=== PATIENT | female | born 1965 | race Caucasian/White ===

== ENCOUNTER 2016-04-10 23:34 | Emergency (ER) | payer OTHER ==
[~2016-04-10 23:34] MED LIST: /ESOM40CA OR; ALTA5CAP OR; CIPRO PO; ROSU10TA OR; [UNRECOGNIZED DRUG - OTHER] PO
[2016-04-11] MEDS ORDERED: traMADol 50 MG TAB As Ordered ONE (00:08)
[2016-04-11] MEDS ORDERED: METHOCARBAMOL 500 MG TAB As Ordered ONE (00:09)
--- NOTE | 2016-04-11 00:26 | EDDOCDS ---
Physician Documentation [facility] Name: Noy Rivera Age: 50 yrs Sex: Female : 1965 Arrival Date: 04/10/2016 Time: 23:34 Bed Triage 3 Private MD: Mandeep Disposition: 04/11/16 00:07 Discharged to Home/Self Care. Impression: Radiculopathy, cervical region. - Condition is Stable. - Discharge Instructions: Cervical Radiculopathy, [id number]. - Prescriptions for Ultram 50 mg Oral Tablet - take 1 tablet by ORAL route every 6 hours As needed MDD: 4 tabs; 20 tablet. Diclofenac Sodium 75 mg Oral Tablet, Delayed Release (E.C.) - take 1 tablet by ORAL route 2 times per day; 30 tablet. Robaxin- 750 750 mg Oral Tablet - take 1 tablet by ORAL route every 6 hours As needed; 40 tablet. - Medication Reconciliation, Local Pharmacy Hours form. - Follow up: Mandeep; When: Call to arrange an appointment; Reason: Further diagnostic work-up, Recheck today's complaints, Continuance of care. - Problem is new. - Symptoms are unchanged. Historical: - Allergies: PENICILLINS; - Home Meds: 1. Nexium 80mg daily Oral 2. ramipril 5 mg Oral tab daily 3. Crestor 10 mg Oral tab 4. normydine 100mg - PMHx: Hypertension; Hypercholesterolemia; - PSHx: Hysterectomy; Appendectomy; bilateral knee repair; right footsurgery; eye surgery; - Social history: Smoking status: Patient states was never smoker of tobacco. No barriers to communication noted, The patient speaks fluent Gibraltarian, Speaks appropriately for age. - Family history: Not pertinent. - : The pt / caregiver states he / she is not on anticoagulants. Home medication list is obtained from the patient. - Exposure Risk Screening:: None identified. 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 3 in. (160.02 cm) (R); Pain 8/10; 23:36 Body Mass Index 44.29 (113.40 kg, 160.02 cm) gr2 MDM: 04/11 00:06 traMADol 50mg- 4 pack 1 packets PO Per package directions; Dispense with patient. Take btw per package instructions. ordered. 00:06 Methocarbamol 1 grams PO once ordered. btw Administered Medications: 00:15 Drug: traMADol 50mg- 4 pack 1 packets [tramadol 50 mg tablet (1 tabs)] {Co-Signature: ying catherine5 (Noy Parkinson RN).} Route: PO; 00:15 Drug: Methocarbamol 1 grams [methocarbamol 500 mg tablet (2 tabs)] Route: PO; cz Signatures: Geovani Duffy RN RN cz Wolfenden, Brandon, PA PA btw Noy Parkinson RN ld5 MTDEdmond
--- NOTE | 2016-04-11 00:26 | EDDOCDS ---
Nurse's Notes [facility] Name: Noy Rivera Age: 50 yrs Sex: Female : 1965 Arrival Date: 04/10/2016 Time: 23:34 Bed Triage 3 Private MD: Mandeep Diagnosis: Radiculopathy, cervical region Presentation: 04/10 23:39 Presenting complaint: Patient states: she woke up with right lateral neck pain that cz radiates to right arm no relief with over the counter medications and heat no known injury. Adult Sepsis Screening: The patient does not have new or worsening altered mentation. Patient's respiratory rate is less than 22. Systolic blood pressure is greater than 100. Patient has a qSOFA score of 0- Negative Sepsis Screen. Suicide/Homicide risk assessment- the patient denies having any suicidal and/or homicidal ideations and does not present with any other emotional, behavioral or mental health complaints. Status: Patient is not a service car driver or dependent. Transition of care: patient was not received from another setting of care. 23:39 Acuity: ELVER Level 4 cz 23:39 Method Of Arrival: Walkin/Carried/Asstd cz Triage Assessment: 23:42 General: Appears uncomfortable. Pain: Location: right arm Pain currently is 8 out of 10 cz on a pain scale. Pt Declines HIV testing. 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 Nexium 80mg daily Oral 2. ramipril 5 mg Oral tab daily 3. Crestor 10 mg Oral tab 4. normydine 100mg - PMHx: Hypertension; Hypercholesterolemia; - PSHx: Hysterectomy; Appendectomy; bilateral knee repair; right footsurgery; eye surgery; - Social history: Smoking status: Patient states was never smoker of tobacco. No barriers to communication noted, The patient speaks fluent Luxembourgish, Speaks appropriately for age. - Family history: Not pertinent. - : The pt / caregiver states he / she is not on anticoagulants. Home medication list is obtained from the patient. - Exposure Risk Screening:: None identified. Screenin/13 00:23 Screening information is obtained from the patient. Fall risk: No risks identified. cz Assistance ADL's: requires no assistance with activities of daily living. Abuse/DV Screen: The patient / caregiver reports he/she is: not in a situation that causes fear, pain or injury. Nutritional screening: No deficits noted. home support is adequate. Assessment: 00:23 General: alert female with right lateral neck pain and right arm pain. Musculoskeletal: cz Circulation, motion, and sensation intact Capillary refill < 3 seconds. Vital Signs: 04/10 23:36 BP 186 / 93; Pulse 80; Resp 18 S; Temp 97.2(O); Pulse Ox 98% on R/A; Weight 113.4 kg gr2 (R); Height 5 ft. 3 in. (160.02 cm) (R); Pain 8/10; 23:36 Body Mass Index 44.29 (113.40 kg, 160.02 cm) gr2 Vitals: 23:36 Log In Time: April 10, 2016 at 23:36. gr2 ED Course: 23:35 Patient visited by Neto Porras. gr2 23:35 Mandeep is Private Physician. gr2 23:35 Patient moved to Waiting gr2 23:37 Patient visited by Neto Porras. gr2 23:37 Patient moved to Pre RCE gr2 23:40 Triage Initiated cz 23:46 Patient moved to Triage 3 cz 04/11 00:02 Richard Wills PA is PHCP. btw 00:02 Cody Lo DO is Attending Physician. btw 00:06 Patient visited by Richard Wills PA. btw 00:07 Mandeep is Referral Physician. btw 00:23 The patient / caregiver is instructed regarding the plan of care and ED course. cz 00:23 No IV's were initiated during this patient's visit. No procedures done that require cz assistance. Administered Medications: 00:15 Drug: traMADol 50mg- 4 pack 1 packets [tramadol 50 mg tablet (1 tabs)] {Co-Signature: cz ld5 (Noy Parkinson RN).} Route: PO; 00:15 Drug: Methocarbamol 1 grams [methocarbamol 500 mg tablet (2 tabs)] Route: PO; cz Order Results: There are currently no results for this order. Outcome: 00:07 Discharge ordered by Provider. btw 00:23 Discharge Assessment: Patient awake, alert and oriented x 3. No cognitive and/or cz functional deficits noted. Patient verbalized understanding of disposition instructions. patient administered narcotics - no. The following High Risk Discharge criteria are identified: None. Discharged to home via ambulance, with family. Condition: stable. Discharge instructions given to patient. No special radiology studies were completed. Property :Personal belongings accompany Pt. 00:25 Patient left the ED. cz Signatures: Geovani Duffy RN RN Richard Shin PA PA btw Raymond, Gainslee gr2 Noy Parkinson RN ld5 MTDD
--- NOTE | 2016-04-13 01:26 | EDDOCDS ---
[facility] Name: Noy Rivera Age: 50 yrs Sex: Female : 1965 Arrival Date: 04/10/2016 Time: 23:34 Bed Triage 3 Private MD: Mandeep Disposition: 04/11/16 00:07 Discharged to Home/Self Care. Impression: Radiculopathy, cervical region. - Condition is Stable. - Discharge Instructions: Cervical Radiculopathy, [id number]. - Prescriptions for Ultram 50 mg Oral Tablet - take 1 tablet by ORAL route every 6 hours As needed MDD: 4 tabs; 20 tablet. Diclofenac Sodium 75 mg Oral Tablet, Delayed Release (E.C.) - take 1 tablet by ORAL route 2 times per day; 30 tablet. Robaxin- 750 750 mg Oral Tablet - take 1 tablet by ORAL route every 6 hours As needed; 40 tablet. - Medication Reconciliation, Local Pharmacy Hours form. - Follow up: Mandeep; When: Call to arrange an appointment; Reason: Further diagnostic work-up, Recheck today's complaints, Continuance of care. - Problem is new. - Symptoms are unchanged. Historical: - Allergies: PENICILLINS; - Home Meds: 1. Nexium 80mg daily Oral 2. ramipril 5 mg Oral tab daily 3. Crestor 10 mg Oral tab 4. normydine 100mg - PMHx: Hypertension; Hypercholesterolemia; - PSHx: Hysterectomy; Appendectomy; bilateral knee repair; right footsurgery; eye surgery; - Social history: Smoking status: Patient states was never smoker of tobacco. No barriers to communication noted, The patient speaks fluent Indonesian, Speaks appropriately for age. - Family history: Not pertinent. - : The pt / caregiver states he / she is not on anticoagulants. Home medication list is obtained from the patient. - Exposure Risk Screening:: None identified. 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 3 in. (160.02 cm) (R); Pain 8/10; 23:36 Body Mass Index 44.29 (113.40 kg, 160.02 cm) gr2 MDM: 04/11 00:06 traMADol 50mg- 4 pack 1 packets PO Per package directions; Dispense with patient. Take btw per package instructions. ordered. 00:06 Methocarbamol 1 grams PO once ordered. btw 01:32 Financial registration complete. hs2 01:33 [facility] Payment Agreement was scanned into [employer] and attached to record. hs2 09:44 T-Sheet-- Draft Copy was scanned into [employer] and attached to record. gb Administered Medications: 00:15 Drug: traMADol 50mg- 4 pack 1 packets [tramadol 50 mg tablet (1 tabs)] {Co-Signature: ying ld5 (Noy Parkinson RN).} Route: PO; 00:15 Drug: Methocarbamol 1 grams [methocarbamol 500 mg tablet (2 tabs)] Route: PO; cz Signatures: Geovani Duffy, RN RN cz Meseret Catalan, Reg Reg gb Richard Wills PA PA btw Norma Ratliff, Reg Reg hs2 Noy Parkinson RN ld5 The chart was reviewed and I authenticate all verbal orders and agree with the evaluation and treatment provided.Attachments: 01:33 [facility] Payment Agreement hs2 09:44 T-Sheet-- Draft Copy gb Chart Complete MTDD
--- NOTE | 2016-04-13 01:26 | EDDOCDS ---
Nurse's Notes [facility] Name: Noy Rivera Age: 50 yrs Sex: Female : 1965 Arrival Date: 04/10/2016 Time: 23:34 Bed Triage 3 Private MD: Mandeep Diagnosis: Radiculopathy, cervical region Presentation: 04/10 23:39 Presenting complaint: Patient states: she woke up with right lateral neck pain that cz radiates to right arm no relief with over the counter medications and heat no known injury. Adult Sepsis Screening: The patient does not have new or worsening altered mentation. Patient's respiratory rate is less than 22. Systolic blood pressure is greater than 100. Patient has a qSOFA score of 0- Negative Sepsis Screen. Suicide/Homicide risk assessment- the patient denies having any suicidal and/or homicidal ideations and does not present with any other emotional, behavioral or mental health complaints. Status: Patient is not a technology services manager or dependent. Transition of care: patient was not received from another setting of care. 23:39 Acuity: ELVER Level 4 cz 23:39 Method Of Arrival: Walkin/Carried/Asstd cz Triage Assessment: 23:42 General: Appears uncomfortable. Pain: Location: right arm Pain currently is 8 out of 10 cz on a pain scale. Pt Declines HIV testing. 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 Nexium 80mg daily Oral 2. ramipril 5 mg Oral tab daily 3. Crestor 10 mg Oral tab 4. normydine 100mg - PMHx: Hypertension; Hypercholesterolemia; - PSHx: Hysterectomy; Appendectomy; bilateral knee repair; right footsurgery; eye surgery; - Social history: Smoking status: Patient states was never smoker of tobacco. No barriers to communication noted, The patient speaks fluent Wolof, Speaks appropriately for age. - Family history: Not pertinent. - : The pt / caregiver states he / she is not on anticoagulants. Home medication list is obtained from the patient. - Exposure Risk Screening:: None identified. Screenin/13 00:23 Screening information is obtained from the patient. Fall risk: No risks identified. cz Assistance ADL's: requires no assistance with activities of daily living. Abuse/DV Screen: The patient / caregiver reports he/she is: not in a situation that causes fear, pain or injury. Nutritional screening: No deficits noted. home support is adequate. Assessment: 00:23 General: alert female with right lateral neck pain and right arm pain. Musculoskeletal: cz Circulation, motion, and sensation intact Capillary refill < 3 seconds. Vital Signs: 04/10 23:36 BP 186 / 93; Pulse 80; Resp 18 S; Temp 97.2(O); Pulse Ox 98% on R/A; Weight 113.4 kg gr2 (R); Height 5 ft. 3 in. (160.02 cm) (R); Pain 8/10; 23:36 Body Mass Index 44.29 (113.40 kg, 160.02 cm) gr2 Vitals: 23:36 Log In Time: April 10, 2016 at 23:36. gr2 ED Course: 23:35 Patient visited by Neto Porras. gr2 23:35 Mandeep is Private Physician. gr2 23:35 Patient moved to Waiting gr2 23:37 Patient visited by Neto Porras. gr2 23:37 Patient moved to Pre RCE gr2 23:40 Triage Initiated cz 23:46 Patient moved to Triage 3 cz 04/11 00:02 Richard Wills PA is PHCP. btw 00:02 Cody Lo DO is Attending Physician. btw 00:06 Patient visited by Richard Wills PA. btw 00:07 Mandeep is Referral Physician. btw 00:23 The patient / caregiver is instructed regarding the plan of care and ED course. cz 00:23 No IV's were initiated during this patient's visit. No procedures done that require cz assistance. 01:33 [facility] Payment Agreement was scanned into [employer] and attached to record. hs2 09:44 T-Sheet-- Draft Copy was scanned into [employer] and attached to record. gb Administered Medications: 00:15 Drug: traMADol 50mg- 4 pack 1 packets [tramadol 50 mg tablet (1 tabs)] {Co-Signature: ying ld5 (Noy Parkinson RN).} Route: PO; 00:15 Drug: Methocarbamol 1 grams [methocarbamol 500 mg tablet (2 tabs)] Route: PO; cz Order Results: There are currently no results for this order. Outcome: 00:07 Discharge ordered by Provider. btw 00:23 Discharge Assessment: Patient awake, alert and oriented x 3. No cognitive and/or cz functional deficits noted. Patient verbalized understanding of disposition instructions. patient administered narcotics - no. The following High Risk Discharge criteria are identified: None. Discharged to home via ambulance, with family. Condition: stable. Discharge instructions given to patient. No special radiology studies were completed. Property :Personal belongings accompany Pt. 00:25 Patient left the ED. cz Signatures: Geovani Duffy, RN RN cz Meseret Catalan, Reg Reg gb Richard Wills PA PA btw Neto Porras gr2 Norma Ratliff, Reg Reg hs2 Noy Parkinson RN ld5 Chart Complete MTDD
--- NOTE | 2016-04-13 01:26 | EDDOCDS ---
Physician Documentation [facility] Name: Noy Rivera Age: 50 yrs Sex: Female : 1965 Arrival Date: 04/10/2016 Time: 23:34 Bed Triage 3 Private MD: Mandeep Disposition: 04/11/16 00:07 Discharged to Home/Self Care. Impression: Radiculopathy, cervical region. - Condition is Stable. - Discharge Instructions: Cervical Radiculopathy, [id number]. - Prescriptions for Ultram 50 mg Oral Tablet - take 1 tablet by ORAL route every 6 hours As needed MDD: 4 tabs; 20 tablet. Diclofenac Sodium 75 mg Oral Tablet, Delayed Release (E.C.) - take 1 tablet by ORAL route 2 times per day; 30 tablet. Robaxin- 750 750 mg Oral Tablet - take 1 tablet by ORAL route every 6 hours As needed; 40 tablet. - Medication Reconciliation, Local Pharmacy Hours form. - Follow up: Mandeep; When: Call to arrange an appointment; Reason: Further diagnostic work-up, Recheck today's complaints, Continuance of care. - Problem is new. - Symptoms are unchanged. Historical: - Allergies: PENICILLINS; - Home Meds: 1. Nexium 80mg daily Oral 2. ramipril 5 mg Oral tab daily 3. Crestor 10 mg Oral tab 4. normydine 100mg - PMHx: Hypertension; Hypercholesterolemia; - PSHx: Hysterectomy; Appendectomy; bilateral knee repair; right footsurgery; eye surgery; - Social history: Smoking status: Patient states was never smoker of tobacco. No barriers to communication noted, The patient speaks fluent Zimbabwean, Speaks appropriately for age. - Family history: Not pertinent. - : The pt / caregiver states he / she is not on anticoagulants. Home medication list is obtained from the patient. - Exposure Risk Screening:: None identified. 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 3 in. (160.02 cm) (R); Pain 8/10; 23:36 Body Mass Index 44.29 (113.40 kg, 160.02 cm) gr2 MDM: 04/11 00:06 traMADol 50mg- 4 pack 1 packets PO Per package directions; Dispense with patient. Take btw per package instructions. ordered. 00:06 Methocarbamol 1 grams PO once ordered. btw 01:32 Financial registration complete. hs2 01:33 [facility] Payment Agreement was scanned into [employer] and attached to record. hs2 09:44 T-Sheet-- Draft Copy was scanned into [employer] and attached to record. gb Administered Medications: 00:15 Drug: traMADol 50mg- 4 pack 1 packets [tramadol 50 mg tablet (1 tabs)] {Co-Signature: ying ld5 (Noy Parkinson RN).} Route: PO; 00:15 Drug: Methocarbamol 1 grams [methocarbamol 500 mg tablet (2 tabs)] Route: PO; cz Signatures: Geovani Duffy, RN RN cz Meseret Catalan, Reg Reg gb Richard Wills PA PA btw Norma Ratliff, Reg Reg hs2 Noy Parkinson RN ld5 The chart was reviewed and I authenticate all verbal orders and agree with the evaluation and treatment provided.Attachments: 01:33 [facility] Payment Agreement hs2 09:44 T-Sheet-- Draft Copy gb Chart Complete MTDD
== END 2016-04-11 00:25 | disposition home or self-care (01) ==
LOC: M ED 23:34
DX: M54.12 Radiculopathy, cervical region (principal); I10 Essential (primary) hypertension; E78.00 Pure hypercholesterolemia, unspecified; Z79.899 Other long term (current) drug therapy; Z88.0 Allergy status to penicillin

== ENCOUNTER 2016-04-13 12:08 | Emergency (ER) | payer OTHER ==
[2016-04-13] MEDS ORDERED: MORPHINE 4 MG/ML 1ML SYRINGE As Ordered ONE (13:32)
[2016-04-13] MEDS ORDERED: ONDANSETRON 4MG/2ML VIAL (J2405) As Ordered ONE (13:32)
[2016-04-13 13:43] LABS: BASO # 0.1 K/mm3 (0.0-0.2); EOS # 0.2 K/mm3 (0.0-0.50); EOS % 2.3 % (0.0-3.0); LARGE UNSTAINED CELL # 0.1 K/mm3 (0.0-0.4); LARGE UNSTAINED CELL % 1.9 % (0.0-4.0); LYMPH # 1.6 K/mm3 (1.5-4.5); LYMPH % 21.6 % (24.0-44.0); MEAN CORPUSCULAR HEMOGLOBIN 30.3 pg (27.0-33.0); MEAN CORPUSCULAR VOLUME 86.8 fl (80.0-96.0); MONO # 0.4 K/mm3 (0.0-0.8); NEUTROPHILS # 5.1 K/mm3 (1.8-7.7); NEUTROPHILS % 68.1 % (36.0-66.0); PLATELET COUNT, AUTOMATED 413 k/mm3 (150-450); RED CELL DISTRIBUTION WIDTH 11.8 % (11.5-14.5); WHITE BLOOD COUNT 7.5 K/mm3 (4.0-10.0)
--- NOTE | 2016-04-13 14:10 | REP ---
Clinical: Right-sided radiculopathy. Technique: Axial noncontrast images from C6 through L2 with coronal and sagittal re-formations. Findings: Thoracic vertebral bodies are essentially normal for age. Appropriate alignment and kyphosis noted. There is no evidence for acute fracture / compression injury or subluxation. Incidental note is made of a benign hemangioma in the T11 vertebral body. Minimal anterior spurring and osteophyte formation with subtle disc space narrowing appears relatively appropriate for age. No obvious posterior disc bulges or herniations are appreciated. The spinal canal is patent and without obvious stenosis. The neural foramen appear patent bilaterally. Impression: Mild age-related changes. Neural foramen appear patent bilaterally. No acute fracture / compression injury. Benign hemangioma at T11. Signed by Erlin Mckeon MD 04/13/2016 02:01 P
[2016-04-13 14:11] LABS: ALBUMIN 4.4 GM/DL (3.2-5.2); ALBUMIN/GLOBULIN RATIO 1.26 (1.00-1.93); ALKALINE PHOSPHATASE 94 U/L (45-117); ALT/SGPT 35 U/L (12-78); AMYLASE 46 U/L (25-115); ANION GAP 10 MEQ/L (8-16); AST/SGOT 28 U/L (15-37); BILIRUBIN,DIRECT < 0.1 MG/DL (0.0-0.2); BILIRUBIN,TOTAL 0.5 MG/DL (0.2-1.0); BLOOD UREA NITROGEN 19 MG/DL (7-18); CARBON DIOXIDE LEVEL 25 MEQ/L (21-32); CHLORIDE LEVEL 104 MEQ/L (98-107); CREATININE FOR GFR 0.85 MG/DL (0.55-1.02); GLOMERULAR FILTRATION RATE > 60.0 (>51); GLUCOSE, FASTING 98 MG/DL (70-105); POTASSIUM SERUM 4.3 MEQ/L (3.5-5.1); SODIUM LEVEL 139 MEQ/L (136-145); TOTAL PROTEIN 7.9 GM/DL (6.4-8.2)
[2016-04-13] MEDS ORDERED: NORCO, ANEXSIA 5/325MG TABLET (HYDROcodone/ACETAMINOPHEN) As Ordered ONE (14:34)
[2016-04-13] MEDS ORDERED: NITROFURANTOIN (MACROBID) 100 MG CAP As Ordered ONE (14:34)
[2016-04-13] MEDS ORDERED: PHENAZOPYRIDINE 100 MG TAB As Ordered ONE (14:34)
--- NOTE | 2016-04-13 15:22 | EDDOCDS ---
Nurse's Notes [facility] Name: Noy Rivera Age: 50 yrs Sex: Female : 1965 Arrival Date: 04/13/2016 Time: 12:08 Bed I3 / M3 Private MD: Mandeep Diagnosis: Urinary tract infection, site not specified;Dorsalgia-Acute;Hemangioma-Benign Hemangioma at T11 Presentation: 04/13 12:12 Presenting complaint: Patient states: Was seen here on for right mid back and rs3 flank pain. Sent home with Tramadol, methocarbamol, and diclofenac. pain getting worse radiating to right hand. Acute neurological deficits are not present. Mechanism of Injury: No Mechanism of Injury. Adult Sepsis Screening: The patient does not have new or worsening altered mentation. Patient's respiratory rate is less than 22. Systolic blood pressure is greater than 100. Patient has a qSOFA score of 0- Negative Sepsis Screen. Suicide/Homicide risk assessment- the patient denies having any suicidal and/or homicidal ideations and does not present with any other emotional, behavioral or mental health complaints. Status: Patient is not a environmental services tech or dependent. Transition of care: patient was not received from another setting of care. 12:12 Acuity: ELVER Level 3 rs3 12:12 Method Of Arrival: Walkin/Carried/Asstd rs3 Triage Assessment: 12:17 General: Appears in no apparent distress. Pain: Location: thoracic area and right mid rs3 back. HIV screening NA for this visit Offered previously. Musculoskeletal: Reports Pain is 9 out of 10 on a pain scale. YOGA COORDINATOR: 12:17 LMP N/A - Hysterectomy rs3 Historical: - Allergies: PENICILLINS (Hives); - Home Meds: 1. Crestor 10 mg Oral tab 1 tab once daily (Last dose: 04/12/2016) 2. Nexium 80mg daily Oral 1 cap once daily 3. normydine 100mg twice a day 4. ramipril 5 mg Oral tab daily 5. tramadol 50 mg Oral tab 1 tab every 6 hours 6. methocarbamol 750 mg Oral tab 1 tab every 4 hours 7. diclofenac sodium 75 mg oral TbEC 2 times per day - PMHx: Hypercholesterolemia; Hypertension; - PSHx: Hysterectomy; Appendectomy; bilateral knee repair; right footsurgery; eye surgery; - Social history: Smoking status: Patient states was never smoker of tobacco. No barriers to communication noted, The patient speaks fluent Burmese. - Family history: No immediate family members are acutely ill. - : The pt / caregiver states he / she is not on anticoagulants. Home medication list is obtained from the patient. - Exposure Risk Screening:: None identified. Screenin:21 Screening information is obtained from the patient. Fall risk: No risks identified. ms18 Assistance ADL's: requires no assistance with activities of daily living. Abuse/DV Screen: The patient / caregiver reports he/she is: not in a situation that causes fear, pain or injury. Nutritional screening: No deficits noted. Advance Directives: There is no active DNR order. home support is adequate. Assessment: 13:49 General: first contact with pt ---pt holding right arm on abdomen. Pain: Pain currently ms2 is 10 out of 10 on a pain scale. Neurological: Level of Consciousness is awake, alert, obeys commands. Respiratory: No deficits noted. Airway is patent Respiratory effort is even, unlabored, Respiratory pattern is regular, symmetrical. Derm: Skin is pink, warm & dry. Musculoskeletal: Circulation, motion, and sensation intact Capillary refill < 3 seconds Range of motion limited in right arm due to pain. 14:37 General: Appears in no apparent distress, obese, Behavior is appropriate for age, ms18 cooperative. Pain: Pain currently is 8 out of 10 on a pain scale. Respiratory: Airway is patent Respiratory effort is even, unlabored. Derm: Skin is pink, warm & dry. 15:20 General: Appears in no apparent distress, Behavior is appropriate for age, cooperative. ms18 Pain: Pain currently is 7 out of 10 on a pain scale. Cardiovascular: No deficits noted. Respiratory: No deficits noted. Derm: Skin is pink, warm & dry. normal. Vital Signs: 12:10 BP 201 / 114; Pulse 80; Resp 20 S; Temp 96.6(O); Pulse Ox 97% on R/A; Weight 113.4 kg dd6 (R); Height 5 ft. 3 in. (160.02 cm) (R); Pain 10/10; 13:25 BP 158 / 98 LA (man/); hs1 13:48 BP 165 / 102; Pulse 68; Resp 20 S; Pulse Ox 94% on R/A; Pain 10/10; ms2 15:14 BP 145 / 90; Pulse 73; Resp 18; Temp 96.7(TE); Pulse Ox 97% ; Pain 7/10; jrd 12:10 Body Mass Index 44.29 (113.40 kg, 160.02 cm) dd6 Vitals: 12:10 Log In Time: April 13, 2016 at 12:08. dd6 ED Course: 12:09 Patient visited by Blake Reyes PCA. dd6 12:09 [place] is Private Physician. dd6 12:09 Patient moved to Waiting dd6 12:11 Patient moved to Pre RCE dd6 12:14 Triage Initiated rs3 13:00 [facility] ef1 13:00 Rene Lewis MD is Attending Physician. ef1 13:00 Patient visited by Sabina Piña PA-C. ef1 13:00 Patient moved to I3 / M3 dls 13:25 Amylase Sent. hs1 13:25 Basic Metabolic Profile Sent. hs1 13:25 CBC with Diff Sent. hs1 13:25 Lipase Sent. hs1 13:25 Liver Profile Sent. hs1 13:25 Urinalysis Sent. hs1 13:26 Urine Culture Sent. hs1 13:27 Patient visited by Sabina Piña PA-C. ef1 13:47 Patient visited by Gopal Hernández RN. ms2 13:52 The patient / caregiver is instructed regarding the plan of care and ED course. ms2 13:52 No IV's were initiated during this patient's visit. No procedures done that require ms2 assistance. 14:22 [facility] [place] was scanned into [employer] and attached to record. mm15 14:26 CT Spine,Thoracic W/o Contrast Returned. EDMS 14:29 Patient visited by Sabina Piña PA-C. ef1 14:59 Patient visited by Sabina Piña PA-C. ef1 15:03 [place] is Referral Physician. ef1 15:03 [facility] ef1 15:14 Patient visited by Porfirio Morales PCA. jrd Administered Medications: 13:43 Drug: Ondansetron 4 mg Route: IVP; Site: left antecubital; ms2 13:44 Drug: morphine 4 mg [morphine 4 mg/mL intravenous cartridge (1 mL)] Route: IVP; Site: ms2 left antecubital; 13:48 Follow up: BP 165 / 102; Pulse 68 bpm; Resp 20 bpm Spontaneous; Pulse Ox 94% RA; Pain ms2 10 Adult 14:37 Drug: Nitrofurantoin 100 mg Route: PO; ms18 14:37 Drug: Phenazopyridine 200 mg [phenazopyridine 100 mg tablet (2 tabs)] Route: PO; ms18 14:37 Drug: HYDROcodone-acetaminophen 1 tabs [hydrocodone 5 mg-acetaminophen 325 mg tablet (1 ms18 tabs)] Route: PO; Order Results: Lab Order: Amylase; SPEC'M 04/13/16 13:08 Test: AMYLASE; Value: 46; Range: 25-115; Units: U/L; Status: F Lab Order: Basic Metabolic Profile; SPEC'M 04/13/16 13:08 Test: GLUCOSE, FASTING; Value: 98; Range: 70-105; Units: MG/DL; Status: F Test: BLOOD UREA NITROGEN; Value: 19; Range: 7-18; Abnormal: Above high normal; Units: MG/DL; Status: F Test: CREATININE FOR GFR; Value: 0.85; Range: 0.55-1.02; Units: MG/DL; Status: F Test: GLOMERULAR FILTRATION RATE; Value: > 60.0; Range: >51; Status: F Test: SODIUM LEVEL; Value: 139; Range: 136-145; Units: MEQ/L; Status: F Test: POTASSIUM SERUM; Value: 4.3; Range: 3.5-5.1; Units: MEQ/L; Status: F Test: CHLORIDE LEVEL; Value: 104; Range: 98-107; Units: MEQ/L; Status: F Test: CARBON DIOXIDE LEVEL; Value: 25; Range: 21-32; Units: MEQ/L; Status: F Test: ANION GAP; Value: 10; Range: 8-16; Units: MEQ/L; Status: F Test: CALCIUM LEVEL; Value: 9.0; Range: 8.5-10.1; Units: MG/DL; Status: F Test Note: ; Units are mL/min/1.73 m2 Chronic Kidney Disease Staging per NKF: Stage I & II GFR >=60 Normal to Mildly Decreased Stage III GFR 30-59 Moderately Decreased Stage IV GFR 15-29 Severely Decreased Stage V GFR <15 Very Little GFR Left ESRD GFR <15 on CAR ATTENDANT Lab Order: CBC with Diff; SPEC'M 04/13/16 13:08 Test: WHITE BLOOD COUNT; Value: 7.5; Range: 4.0-10.0; Units: K/mm3; Status: F Test: RED BLOOD COUNT; Value: 4.79; Range: 4.00-5.40; Units: M/mm3; Status: F Test: HEMOGLOBIN; Value: 14.5; Range: 12.0-16.0; Units: g/dl; Status: F Test: HEMATOCRIT; Value: 41.5; Range: 36.0-47.0; Units: %; Status: F Test: MEAN CORPUSCULAR VOLUME; Value: 86.8; Range: 80.0-96.0; Units: fl; Status: F Test: MEAN CORPUSCULAR HEMOGLOBIN; Value: 30.3; Range: 27.0-33.0; Units: pg; Status: F Test: MEAN CORPUSCULAR HGB CONC; Value: 35.0; Range: 32.0-36.5; Units: g/dl; Status: F Test: RED CELL DISTRIBUTION WIDTH; Value: 11.8; Range: 11.5-14.5; Units: %; Status: F Test: PLATELET COUNT, AUTOMATED; Value: 413; Range: 150-450; Units: k/mm3; Status: F Test: NEUTROPHILS %; Value: 68.1; Range: 36.0-66.0; Abnormal: Above high normal; Units: %; Status: F Test: LYMPH %; Value: 21.6; Range: 24.0-44.0; Abnormal: Below low normal; Units: %; Status: F Test: MONO %; Value: 5.0; Range: 0.0-5.0; Units: %; Status: F Test: EOS %; Value: 2.3; Range: 0.0-3.0; Units: %; Status: F Test: BASO %; Value: 1.0; Range: 0.0-1.0; Units: %; Status: F Test: LARGE UNSTAINED CELL %; Value: 1.9; Range: 0.0-4.0; Units: %; Status: F Test: NEUTROPHILS #; Value: 5.1; Range: 1.8-7.7; Units: K/mm3; Status: F Test: LYMPH #; Value: 1.6; Range: 1.5-4.5; Units: K/mm3; Status: F Test: MONO #; Value: 0.4; Range: 0.0-0.8; Units: K/mm3; Status: F Test: EOS #; Value: 0.2; Range: 0.0-0.50; Units: K/mm3; Status: F Test: BASO #; Value: 0.1; Range: 0.0-0.2; Units: K/mm3; Status: F Test: LARGE UNSTAINED CELL #; Value: 0.1; Range: 0.0-0.4; Units: K/mm3; Status: F Lab Order: Lipase; SPEC'M 04/13/16 13:08 Test: LIPASE; Value: 137; Range: 73-393; Units: U/L; Status: F Lab Order: Liver Profile; SPEC'M 04/13/16 13:08 Test: AST/SGOT; Value: 28; Range: 15-37; Units: U/L; Status: F Test: ALT/SGPT; Value: 35; Range: 12-78; Units: U/L; Status: F Test: ALKALINE PHOSPHATASE; Value: 94; Range: 45-117; Units: U/L; Status: F Test: BILIRUBIN,TOTAL; Value: 0.5; Range: 0.2-1.0; Units: MG/DL; Status: F Test: BILIRUBIN,DIRECT; Value: < 0.1; Range: 0.0-0.2; Units: MG/DL; Status: F Test: TOTAL PROTEIN; Value: 7.9; Range: 6.4-8.2; Units: GM/DL; Status: F Test: ALBUMIN; Value: 4.4; Range: 3.2-5.2; Units: GM/DL; Status: F Test: ALBUMIN/GLOBULIN RATIO; Value: 1.26; Range: 1.00-1.93; Status: F Lab Order: Urinalysis; SPEC'M 04/13/16 13:08 Test: APPEARANCE, URINE; Value: CLOUDY; Range: CLEAR; Abnormal: Above high normal; Status: F Test: COLOR, URINE; Value: YELLOW; Range: YELLOW; Status: F Test: PH,URINE; Value: 5.0; Range: 5.0-9.0; Units: UNITS; Status: F Test: SPECIFIC GRAVITY URINE AUTO; Value: 1.026; Range: 1.002-1.035; Status: F Test: PROTEIN, URINE AUTO; Value: NEGATIVE; Range: NEGATIVE; Units: mg/dL; Status: F Test: GLUCOSE, URINE (UA) AUTO; Value: NEGATIVE; Range: NEGATIVE; Units: mg/dL; Status: F Test: KETONE, URINE AUTO; Value: TRACE; Range: NEGATIVE; Abnormal: Above high normal; Units: mg/dL; Status: F Test: UROBILINOGEN, URINE AUTO; Value: 0.2; Range: 0.0-2.0; Units: mg/dL; Status: F Test: BILIRUBIN, URINE AUTO; Value: 2+; Range: NEGATIVE; Abnormal: Above high normal; Status: F Test: NITRITE, URINE AUTO; Value: NEGATIVE; Range: NEGATIVE; Status: F Test: LEUKOCYTE ESTERASE, URINE AUTO; Value: 2+; Range: NEGATIVE; Abnormal: Above high normal; Status: F Test: BLOOD, URINE BLOOD; Value: NEGATIVE; Range: NEGATIVE; Status: F Test: WBC, URINE AUTO; Value: 12; Range: 0-3; Abnormal: Above high normal; Units: /HPF; Status: F Test: RBC, URINE AUTO; Value: 1; Range: 0-3; Units: /HPF; Status: F Test: BACTERIA, URINE AUTO; Value: NEGATIVE; Range: NEGATIVE; Status: F Test: SQUAMOUS EPITHELIAL CELL UR AU; Value: 11; Range: 0-6; Units: /HPF; Status: F Test: TRANSITIONAL EPITHELIAL AUTO; Value: 1; Range: NONE; Units: /HPF; Status: F Test: MUCUS, URINE; Value: SMALL; Range: NEGATIVE; Status: F Test: HYALINE CAST, URINE AUTO; Value: 0; Range: 0-1; Units: /LPF; Status: F Test: AMORPHOUS SEDIMENT; Value: MODERATE; Range: NEGATIVE; Abnormal: Above high normal; Status: F Radiology Order: CT Spine,Thoracic W/o Contrast Test: CT Spine,Thoracic W/o Contrast REASON FOR EXAMINATION: Right sided radiculopathy; Clinical: Right-sided radiculopathy.; ; Technique: Axial noncontrast images from C6 through L2 with coronal and sagittal; re-formations.; ; Findings:; Thoracic vertebral bodies are essentially normal for age. Appropriate alignment; and kyphosis noted. There is no evidence for acute fracture / compression injury; or subluxation. Incidental note is made of a benign hemangioma in the T11; vertebral body. Minimal anterior spurring and osteophyte formation with subtle; disc space narrowing appears relatively appropriate for age. No obvious; posterior disc bulges or herniations are appreciated. The spinal canal is patent; and without obvious stenosis. The neural foramen appear patent bilaterally.; ; Impression:; Mild age-related changes.; Neural foramen appear patent bilaterally.; No acute fracture / compression injury.; Benign hemangioma at T11.; ; ; Signed by; Erlin Mckeon MD 04/13/2016 02:01 P; Outcome: 15:03 Discharge ordered by Provider. ef1 15:21 Discharge Assessment: Patient awake, alert and oriented x 3. No cognitive and/or hs1 functional deficits noted. Patient verbalized understanding of disposition instructions. patient administered narcotics - yes. Pt provided with safe discharge. The following High Risk Discharge criteria are identified: None. Discharged to home ambulatory. Condition: stable. Discharge instructions given to patient, Instructed on discharge instructions, follow up and referral plans. medication usage, Demonstrated understanding of instructions, medications, Pt was receptive of discharge instructions/ teaching. Prescriptions given X 3. CT Study completed. Property sent home with patient. 15:22 Patient left the ED. hs1 Signatures: Dispatcher [employer] EDMS Gopal Hernández RN RN ms2 Rocio Montano RN RN dls Blake Reyes, CASE PACKER AND SEALER CASE PACKER AND SEALER dd6 Sabina Piña, PA-C PA-C ef1 Crystal Munoz RN RN rs3 Magdalene Stevens RN RN hs1 Silvia Savage mm15 Batool Downey RN RN ms18 Porfirio Morales, CASE PACKER AND SEALER CASE PACKER AND SEALER jrd MTDD
--- NOTE | 2016-04-13 15:22 | EDDOCDS ---
Physician Documentation [facility] Name: Noy Rivera Age: 50 yrs Sex: Female : 1965 Arrival Date: 04/13/2016 Time: 12:08 Bed I3 / M3 Private MD: Mandeep Disposition: 04/13/16 15:03 Discharged to Home/Self Care. Impression: Urinary tract infection, site not specified, Dorsalgia - Acute, Hemangioma - Benign Hemangioma at T11. - Condition is Stable. - Discharge Instructions: Urinary Tract Infection, Uabw-pe-Roqv, Back Pain, Adult, [id number]. - Prescriptions for [place] 5- 325 mg Oral Tablet - take 1 tablet by ORAL route every 6 hours As needed MDD: 4 tabs; 20 tablet. Pyridium 200 mg Oral Tablet - take 1 tablet by ORAL route every 8 hours for 3 days; 9 tablet. Macrobid 100 mg Oral Capsule - take 100 milligram by ORAL route every 12 hours for 10 days; 20 capsule. - Medication Reconciliation, Local Pharmacy Hours form. - Follow up: Mandeep; When: 1 - 2 days; Reason: Recheck today's complaints, Continuance of care. Follow up: Emergency Department; Reason: Worsening of conditions. Follow up: [facility]; When: Call to arrange an appointment; Reason: Further diagnostic work-up, Recheck today's complaints, Continuance of care. - Problem is new. - Symptoms have improved. Historical: - Allergies: PENICILLINS (Hives); - Home Meds: 1. Crestor 10 mg Oral tab 1 tab once daily (Last dose: 04/12/2016) 2. Nexium 80mg daily Oral 1 cap once daily 3. normydine 100mg twice a day 4. ramipril 5 mg Oral tab daily 5. tramadol 50 mg Oral tab 1 tab every 6 hours 6. methocarbamol 750 mg Oral tab 1 tab every 4 hours 7. diclofenac sodium 75 mg oral TbEC 2 times per day - PMHx: Hypercholesterolemia; Hypertension; - PSHx: Hysterectomy; Appendectomy; bilateral knee repair; right footsurgery; eye surgery; - Social history: Smoking status: Patient states was never smoker of tobacco. No barriers to communication noted, The patient speaks fluent Swedish. - Family history: No immediate family members are acutely ill. - : The pt / caregiver states he / she is not on anticoagulants. Home medication list is obtained from the patient. - Exposure Risk Screening:: None identified. INTEGRATED MARKETING INTERN: 04/13 12:17 LMP N/A - Hysterectomy rs3 Vital Signs: 12:10 BP 201 / 114; Pulse 80; Resp 20 S; Temp 96.6(O); Pulse Ox 97% on R/A; Weight 113.4 kg / dd6 250 lbs (R); Height 5 ft. 3 in. (160.02 cm) (R); Pain 10/10; 13:25 BP 158 / 98 LA (man/); hs1 13:48 BP 165 / 102; Pulse 68; Resp 20 S; Pulse Ox 94% on R/A; Pain 10/10; ms2 15:14 BP 145 / 90; Pulse 73; Resp 18; Temp 96.7(TE); Pulse Ox 97% ; Pain 7/10; jrd 12:10 Body Mass Index 44.29 (113.40 kg, 160.02 cm) dd6 MDM: 13:00 Recheck B/P ordered. ef1 13:06 Undress patient appropriately for examination ordered. ef1 13:06 IV Saline Lock ordered. ef1 13:06 Amylase Ordered. EDMS 13:06 Basic Metabolic Profile Ordered. EDMS 13:06 CBC with Diff Ordered. EDMS 13:06 Lipase Ordered. EDMS 13:06 Liver Profile Ordered. EDMS 13:06 Urinalysis Ordered. EDMS 13:06 Urine Culture Ordered. EDMS 13:07 NOTHING BY MOUTH+DIET ordered. EDMS 13:28 Ondansetron 4 mg IVP once ordered. ef1 13:28 morphine 4 mg IVP once ordered. ef1 13:29 CT Spine,Thoracic W/o Contrast Ordered. EDMS 14:06 Financial registration complete. mm15 14:22 [facility] [place] was scanned into [employer] and attached to record. mm15 14:30 Basic Metabolic Profile Reviewed. ef1 14:30 CBC with Diff Reviewed. ef1 14:30 Urinalysis Reviewed. ef1 14:30 Amylase Reviewed. ef1 14:30 Lipase Reviewed. ef1 14:30 Liver Profile Reviewed. ef1 14:30 CT Spine,Thoracic W/o Contrast Reviewed. ef1 14:32 Nitrofurantoin 100 mg PO once ordered. ef1 14:32 Phenazopyridine 200 mg PO once ordered. ef1 14:32 HYDROcodone-acetaminophen 5 mg-325 mg 1 tabs PO once ordered. ef1 Administered Medications: 13:43 Drug: Ondansetron 4 mg Route: IVP; Site: left antecubital; ms2 13:44 Drug: morphine 4 mg [morphine 4 mg/mL intravenous cartridge (1 mL)] Route: IVP; Site: ms2 left antecubital; 13:48 Follow up: BP 165 / 102; Pulse 68 bpm; Resp 20 bpm Spontaneous; Pulse Ox 94% RA; Pain ms2 10 Adult 14:37 Drug: Nitrofurantoin 100 mg Route: PO; ms18 14:37 Drug: Phenazopyridine 200 mg [phenazopyridine 100 mg tablet (2 tabs)] Route: PO; ms18 14:37 Drug: HYDROcodone-acetaminophen 1 tabs [hydrocodone 5 mg-acetaminophen 325 mg tablet (1 ms18 tabs)] Route: PO; Signatures: Dispatcher [employer] EDSabina Goldsmith, ELISE OLIVARES ef1 Crystal Munoz RN RN rs3 Magdalene Stevens RN RN hs1 Silvia Savage mm15 Gopal Hernández RN ms2 Batool Downey RN ms18 The chart was reviewed and I authenticate all verbal orders and agree with the evaluation and treatment provided.Attachments: 14:22 [facility] Payment Agreement mm15 MTDD
--- NOTE | 2016-04-15 16:22 | EDDOCDS ---
Physician Documentation [facility] Name: Noy Rivera Age: 50 yrs Sex: Female : 1965 Arrival Date: 04/13/2016 Time: 12:08 Bed I3 / M3 Private MD: Mandeep Disposition: 04/13/16 15:03 Discharged to Home/Self Care. Impression: Urinary tract infection, site not specified, Dorsalgia - Acute, Hemangioma - Benign Hemangioma at T11. - Condition is Stable. - Discharge Instructions: Urinary Tract Infection, Ukdw-wr-Dosk, Back Pain, Adult, Elfi-qr-Buhy. - Prescriptions for [place] 5- 325 mg Oral Tablet - take 1 tablet by ORAL route every 6 hours As needed MDD: 4 tabs; 20 tablet. Pyridium 200 mg Oral Tablet - take 1 tablet by ORAL route every 8 hours for 3 days; 9 tablet. Macrobid 100 mg Oral Capsule - take 100 milligram by ORAL route every 12 hours for 10 days; 20 capsule. - Medication Reconciliation, Local Pharmacy Hours form. - Follow up: Mandeep; When: 1 - 2 days; Reason: Recheck today's complaints, Continuance of care. Follow up: Emergency Department; Reason: Worsening of conditions. Follow up: [facility]; When: Call to arrange an appointment; Reason: Further diagnostic work-up, Recheck today's complaints, Continuance of care. - Problem is new. - Symptoms have improved. Historical: - Allergies: PENICILLINS (Hives); - Home Meds: 1. Crestor 10 mg Oral tab 1 tab once daily (Last dose: 04/12/2016) 2. Nexium 80mg daily Oral 1 cap once daily 3. normydine 100mg twice a day 4. ramipril 5 mg Oral tab daily 5. tramadol 50 mg Oral tab 1 tab every 6 hours 6. methocarbamol 750 mg Oral tab 1 tab every 4 hours 7. diclofenac sodium 75 mg oral TbEC 2 times per day - PMHx: Hypercholesterolemia; Hypertension; - PSHx: Hysterectomy; Appendectomy; bilateral knee repair; right footsurgery; eye surgery; - Social history: Smoking status: Patient states was never smoker of tobacco. No barriers to communication noted, The patient speaks fluent Vietnamese. - Family history: No immediate family members are acutely ill. - : The pt / caregiver states he / she is not on anticoagulants. Home medication list is obtained from the patient. - Exposure Risk Screening:: None identified. GENERAL INTERNAL MEDICINE DOCTOR: 04/13 12:17 LMP N/A - Hysterectomy rs3 Vital Signs: 12:10 BP 201 / 114; Pulse 80; Resp 20 S; Temp 96.6(O); Pulse Ox 97% on R/A; Weight 113.4 kg / dd6 250 lbs (R); Height 5 ft. 3 in. (160.02 cm) (R); Pain 10/10; 13:25 BP 158 / 98 LA (man/); hs1 13:48 BP 165 / 102; Pulse 68; Resp 20 S; Pulse Ox 94% on R/A; Pain 10/10; ms2 15:14 BP 145 / 90; Pulse 73; Resp 18; Temp 96.7(TE); Pulse Ox 97% ; Pain 7/10; jrd 12:10 Body Mass Index 44.29 (113.40 kg, 160.02 cm) dd6 MDM: 13:00 Recheck B/P ordered. ef1 13:06 Undress patient appropriately for examination ordered. ef1 13:06 IV Saline Lock ordered. ef1 13:06 Amylase Ordered. EDMS 13:06 Basic Metabolic Profile Ordered. EDMS 13:06 CBC with Diff Ordered. EDMS 13:06 Lipase Ordered. EDMS 13:06 Liver Profile Ordered. EDMS 13:06 Urinalysis Ordered. EDMS 13:06 Urine Culture Ordered. EDMS 13:07 NOTHING BY MOUTH+DIET ordered. EDMS 13:28 Ondansetron 4 mg IVP once ordered. ef1 13:28 morphine 4 mg IVP once ordered. ef1 13:29 CT Spine,Thoracic W/o Contrast Ordered. EDMS 14:06 Financial registration complete. mm15 14:22 [facility] [place] Payment Agreement was scanned into [email or web address] and attached to record. mm15 14:30 Basic Metabolic Profile Reviewed. ef1 14:30 CBC with Diff Reviewed. ef1 14:30 Urinalysis Reviewed. ef1 14:30 Amylase Reviewed. ef1 14:30 Lipase Reviewed. ef1 14:30 Liver Profile Reviewed. ef1 14:30 CT Spine,Thoracic W/o Contrast Reviewed. ef1 14:32 Nitrofurantoin 100 mg PO once ordered. ef1 14:32 Phenazopyridine 200 mg PO once ordered. ef1 14:32 HYDROcodone-acetaminophen 5 mg-325 mg 1 tabs PO once ordered. ef1 21:35 T-Sheet-- Draft Copy was scanned into [email or web address] and attached to record. klr Administered Medications: 13:43 Drug: Ondansetron 4 mg Route: IVP; Site: left antecubital; ms2 13:44 Drug: morphine 4 mg [morphine 4 mg/mL intravenous cartridge (1 mL)] Route: IVP; Site: ms2 left antecubital; 13:48 Follow up: BP 165 / 102; Pulse 68 bpm; Resp 20 bpm Spontaneous; Pulse Ox 94% RA; Pain ms2 01/06 Adult 14:37 Drug: Nitrofurantoin 100 mg Route: PO; ms18 14:37 Drug: Phenazopyridine 200 mg [phenazopyridine 100 mg tablet (2 tabs)] Route: PO; ms18 14:37 Drug: HYDROcodone-acetaminophen 1 tabs [hydrocodone 5 mg-acetaminophen 325 mg tablet (1 ms18 tabs)] Route: PO; Signatures: Dispatcher [employer] EDMS Sabina Piña, ELISE PAArlen ef1 Crystal Munoz RN RN rs3 Magdalene Stevens RN RN hs1 Silvia Savage mm15 Nisa Garcia Michele RN ms2 Batool Downey RN ms18 The chart was reviewed and I authenticate all verbal orders and agree with the evaluation and treatment provided.Attachments: 14:22 [facility] [place] Payment Agreement mm15 21:35 T-Sheet-- Draft Copy klr Chart Complete MTDD
--- NOTE | 2016-04-15 16:22 | EDDOCDS ---
Nurse's Notes [facility] Name: Noy Rivera Age: 50 yrs Sex: Female : 1965 Arrival Date: 04/13/2016 Time: 12:08 Bed I3 / M3 Private MD: Mandeep Diagnosis: Urinary tract infection, site not specified;Dorsalgia-Acute;Hemangioma-Benign Hemangioma at T11 Presentation: 04/13 12:12 Presenting complaint: Patient states: Was seen here on for right mid back and rs3 flank pain. Sent home with Tramadol, methocarbamol, and diclofenac. pain getting worse radiating to right hand. Acute neurological deficits are not present. Mechanism of Injury: No Mechanism of Injury. Adult Sepsis Screening: The patient does not have new or worsening altered mentation. Patient's respiratory rate is less than 22. Systolic blood pressure is greater than 100. Patient has a qSOFA score of 0- Negative Sepsis Screen. Suicide/Homicide risk assessment- the patient denies having any suicidal and/or homicidal ideations and does not present with any other emotional, behavioral or mental health complaints. Status: Patient is not a support services manager or dependent. Transition of care: patient was not received from another setting of care. 12:12 Acuity: ELVER Level 3 rs3 12:12 Method Of Arrival: Walkin/Carried/Asstd rs3 Triage Assessment: 12:17 General: Appears in no apparent distress. Pain: Location: thoracic area and right mid rs3 back. HIV screening NA for this visit Offered previously. Musculoskeletal: Reports Pain is 9 out of 10 on a pain scale. 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 Crestor 10 mg Oral tab 1 tab once daily (Last dose: 04/12/2016) 2. Nexium 80mg daily Oral 1 cap once daily 3. normydine 100mg twice a day 4. ramipril 5 mg Oral tab daily 5. tramadol 50 mg Oral tab 1 tab every 6 hours 6. methocarbamol 750 mg Oral tab 1 tab every 4 hours 7. diclofenac sodium 75 mg oral TbEC 2 times per day - PMHx: Hypercholesterolemia; Hypertension; - PSHx: Hysterectomy; Appendectomy; bilateral knee repair; right footsurgery; eye surgery; - Social history: Smoking status: Patient states was never smoker of tobacco. No barriers to communication noted, The patient speaks fluent Moldovan. - Family history: No immediate family members are acutely ill. - : The pt / caregiver states he / she is not on anticoagulants. Home medication list is obtained from the patient. - Exposure Risk Screening:: None identified. Screenin:21 Screening information is obtained from the patient. Fall risk: No risks identified. ms18 Assistance ADL's: requires no assistance with activities of daily living. Abuse/DV Screen: The patient / caregiver reports he/she is: not in a situation that causes fear, pain or injury. Nutritional screening: No deficits noted. Advance Directives: There is no active DNR order. home support is adequate. Assessment: 13:49 General: first contact with pt ---pt holding right arm on abdomen. Pain: Pain currently ms2 is 10 out of 10 on a pain scale. Neurological: Level of Consciousness is awake, alert, obeys commands. Respiratory: No deficits noted. Airway is patent Respiratory effort is even, unlabored, Respiratory pattern is regular, symmetrical. Derm: Skin is pink, warm & dry. Musculoskeletal: Circulation, motion, and sensation intact Capillary refill < 3 seconds Range of motion limited in right arm due to pain. 14:37 General: Appears in no apparent distress, obese, Behavior is appropriate for age, ms18 cooperative. Pain: Pain currently is 8 out of 10 on a pain scale. Respiratory: Airway is patent Respiratory effort is even, unlabored. Derm: Skin is pink, warm & dry. 15:20 General: Appears in no apparent distress, Behavior is appropriate for age, cooperative. ms18 Pain: Pain currently is 7 out of 10 on a pain scale. Cardiovascular: No deficits noted. Respiratory: No deficits noted. Derm: Skin is pink, warm & dry. normal. Vital Signs: 12:10 BP 201 / 114; Pulse 80; Resp 20 S; Temp 96.6(O); Pulse Ox 97% on R/A; Weight 113.4 kg dd6 (R); Height 5 ft. 3 in. (160.02 cm) (R); Pain 10/10; 13:25 BP 158 / 98 LA (man/); hs1 13:48 BP 165 / 102; Pulse 68; Resp 20 S; Pulse Ox 94% on R/A; Pain 10/10; ms2 15:14 BP 145 / 90; Pulse 73; Resp 18; Temp 96.7(TE); Pulse Ox 97% ; Pain 7/10; jrd 12:10 Body Mass Index 44.29 (113.40 kg, 160.02 cm) dd6 Vitals: 12:10 Log In Time: April 13, 2016 at 12:08. dd6 ED Course: 12:09 Patient visited by Blake Reyes PCA. dd6 12:09 [place] is Private Physician. dd6 12:09 Patient moved to Waiting dd6 12:11 Patient moved to Pre RCE dd6 12:14 Triage Initiated rs3 13:00 [facility] ef1 13:00 Rene Lewis MD is Attending Physician. ef1 13:00 Patient visited by Sabina Piña PA-C. ef1 13:00 Patient moved to I3 / M3 dls 13:25 Amylase Sent. hs1 13:25 Basic Metabolic Profile Sent. hs1 13:25 CBC with Diff Sent. hs1 13:25 Lipase Sent. hs1 13:25 Liver Profile Sent. hs1 13:25 Urinalysis Sent. hs1 13:26 Urine Culture Sent. hs1 13:27 Patient visited by Sabina Piña PA-C. ef1 13:47 Patient visited by Gopal Hernández RN. ms2 13:52 The patient / caregiver is instructed regarding the plan of care and ED course. ms2 13:52 No IV's were initiated during this patient's visit. No procedures done that require ms2 assistance. 14:22 [facility] Payment Agreement was scanned into QBE and attached to record. mm15 14:26 CT Spine,Thoracic W/o Contrast Returned. EDMS 14:29 Patient visited by Sabina Piña PA-C. ef1 14:59 Patient visited by Sabina Piña PA-C. ef1 15:03 Lacona is Referral Physician. ef1 15:03 [facility]. ef1 15:14 Patient visited by Porfirio Morales PCA. jrd 21:35 T-Sheet-- Draft Copy was scanned into QBE and attached to record. klr Administered Medications: 13:43 Drug: Ondansetron 4 mg Route: IVP; Site: left antecubital; ms2 13:44 Drug: morphine 4 mg [morphine 4 mg/mL intravenous cartridge (1 mL)] Route: IVP; Site: ms2 left antecubital; 13:48 Follow up: BP 165 / 102; Pulse 68 bpm; Resp 20 bpm Spontaneous; Pulse Ox 94% RA; Pain ms2 10 Adult 14:37 Drug: Nitrofurantoin 100 mg Route: PO; ms18 14:37 Drug: Phenazopyridine 200 mg [phenazopyridine 100 mg tablet (2 tabs)] Route: PO; ms18 14:37 Drug: HYDROcodone-acetaminophen 1 tabs [hydrocodone 5 mg-acetaminophen 325 mg tablet (1 ms18 tabs)] Route: PO; Order Results: Lab Order: Amylase; SPEC'M 04/13/16 13:08 Test: AMYLASE; Value: 46; Range: 25-115; Units: U/L; Status: F Lab Order: Basic Metabolic Profile; SPEC'M 04/13/16 13:08 Test: GLUCOSE, FASTING; Value: 98; Range: 70-105; Units: MG/DL; Status: F Test: BLOOD UREA NITROGEN; Value: 19; Range: 7-18; Abnormal: Above high normal; Units: MG/DL; Status: F Test: CREATININE FOR GFR; Value: 0.85; Range: 0.55-1.02; Units: MG/DL; Status: F Test: GLOMERULAR FILTRATION RATE; Value: > 60.0; Range: >51; Status: F Test: SODIUM LEVEL; Value: 139; Range: 136-145; Units: MEQ/L; Status: F Test: POTASSIUM SERUM; Value: 4.3; Range: 3.5-5.1; Units: MEQ/L; Status: F Test: CHLORIDE LEVEL; Value: 104; Range: 98-107; Units: MEQ/L; Status: F Test: CARBON DIOXIDE LEVEL; Value: 25; Range: 21-32; Units: MEQ/L; Status: F Test: ANION GAP; Value: 10; Range: 8-16; Units: MEQ/L; Status: F Test: CALCIUM LEVEL; Value: 9.0; Range: 8.5-10.1; Units: MG/DL; Status: F Test Note: ; Units are mL/min/1.73 m2 Chronic Kidney Disease Staging per NKF: Stage I & II GFR >=60 Normal to Mildly Decreased Stage III GFR 30-59 Moderately Decreased Stage IV GFR 15-29 Severely Decreased Stage V GFR <15 Very Little GFR Left ESRD GFR <15 on DRY TRANSFER WORKER Lab Order: CBC with Diff; MICHAEL 04/13/16 13:08 Test: WHITE BLOOD COUNT; Value: 7.5; Range: 4.0-10.0; Units: K/mm3; Status: F Test: RED BLOOD COUNT; Value: 4.79; Range: 4.00-5.40; Units: M/mm3; Status: F Test: HEMOGLOBIN; Value: 14.5; Range: 12.0-16.0; Units: g/dl; Status: F Test: HEMATOCRIT; Value: 41.5; Range: 36.0-47.0; Units: %; Status: F Test: MEAN CORPUSCULAR VOLUME; Value: 86.8; Range: 80.0-96.0; Units: fl; Status: F Test: MEAN CORPUSCULAR HEMOGLOBIN; Value: 30.3; Range: 27.0-33.0; Units: pg; Status: F Test: MEAN CORPUSCULAR HGB CONC; Value: 35.0; Range: 32.0-36.5; Units: g/dl; Status: F Test: RED CELL DISTRIBUTION WIDTH; Value: 11.8; Range: 11.5-14.5; Units: %; Status: F Test: PLATELET COUNT, AUTOMATED; Value: 413; Range: 150-450; Units: k/mm3; Status: F Test: NEUTROPHILS %; Value: 68.1; Range: 36.0-66.0; Abnormal: Above high normal; Units: %; Status: F Test: LYMPH %; Value: 21.6; Range: 24.0-44.0; Abnormal: Below low normal; Units: %; Status: F Test: MONO %; Value: 5.0; Range: 0.0-5.0; Units: %; Status: F Test: EOS %; Value: 2.3; Range: 0.0-3.0; Units: %; Status: F Test: BASO %; Value: 1.0; Range: 0.0-1.0; Units: %; Status: F Test: LARGE UNSTAINED CELL %; Value: 1.9; Range: 0.0-4.0; Units: %; Status: F Test: NEUTROPHILS #; Value: 5.1; Range: 1.8-7.7; Units: K/mm3; Status: F Test: LYMPH #; Value: 1.6; Range: 1.5-4.5; Units: K/mm3; Status: F Test: MONO #; Value: 0.4; Range: 0.0-0.8; Units: K/mm3; Status: F Test: EOS #; Value: 0.2; Range: 0.0-0.50; Units: K/mm3; Status: F Test: BASO #; Value: 0.1; Range: 0.0-0.2; Units: K/mm3; Status: F Test: LARGE UNSTAINED CELL #; Value: 0.1; Range: 0.0-0.4; Units: K/mm3; Status: F Lab Order: Lipase; SPEC'M 04/13/16 13:08 Test: LIPASE; Value: 137; Range: 73-393; Units: U/L; Status: F Lab Order: Liver Profile; SPEC'M 04/13/16 13:08 Test: AST/SGOT; Value: 28; Range: 15-37; Units: U/L; Status: F Test: ALT/SGPT; Value: 35; Range: 12-78; Units: U/L; Status: F Test: ALKALINE PHOSPHATASE; Value: 94; Range: 45-117; Units: U/L; Status: F Test: BILIRUBIN,TOTAL; Value: 0.5; Range: 0.2-1.0; Units: MG/DL; Status: F Test: BILIRUBIN,DIRECT; Value: < 0.1; Range: 0.0-0.2; Units: MG/DL; Status: F Test: TOTAL PROTEIN; Value: 7.9; Range: 6.4-8.2; Units: GM/DL; Status: F Test: ALBUMIN; Value: 4.4; Range: 3.2-5.2; Units: GM/DL; Status: F Test: ALBUMIN/GLOBULIN RATIO; Value: 1.26; Range: 1.00-1.93; Status: F Lab Order: Urinalysis; SPEC'M 04/13/16 13:08 Test: APPEARANCE, URINE; Value: CLOUDY; Range: CLEAR; Abnormal: Above high normal; Status: F Test: COLOR, URINE; Value: YELLOW; Range: YELLOW; Status: F Test: PH,URINE; Value: 5.0; Range: 5.0-9.0; Units: UNITS; Status: F Test: SPECIFIC GRAVITY URINE AUTO; Value: 1.026; Range: 1.002-1.035; Status: F Test: PROTEIN, URINE AUTO; Value: NEGATIVE; Range: NEGATIVE; Units: mg/dL; Status: F Test: GLUCOSE, URINE (UA) AUTO; Value: NEGATIVE; Range: NEGATIVE; Units: mg/dL; Status: F Test: KETONE, URINE AUTO; Value: TRACE; Range: NEGATIVE; Abnormal: Above high normal; Units: mg/dL; Status: F Test: UROBILINOGEN, URINE AUTO; Value: 0.2; Range: 0.0-2.0; Units: mg/dL; Status: F Test: BILIRUBIN, URINE AUTO; Value: 2+; Range: NEGATIVE; Abnormal: Above high normal; Status: F Test: NITRITE, URINE AUTO; Value: NEGATIVE; Range: NEGATIVE; Status: F Test: LEUKOCYTE ESTERASE, URINE AUTO; Value: 2+; Range: NEGATIVE; Abnormal: Above high normal; Status: F Test: BLOOD, URINE BLOOD; Value: NEGATIVE; Range: NEGATIVE; Status: F Test: WBC, URINE AUTO; Value: 12; Range: 0-3; Abnormal: Above high normal; Units: /HPF; Status: F Test: RBC, URINE AUTO; Value: 1; Range: 0-3; Units: /HPF; Status: F Test: BACTERIA, URINE AUTO; Value: NEGATIVE; Range: NEGATIVE; Status: F Test: SQUAMOUS EPITHELIAL CELL UR AU; Value: 11; Range: 0-6; Units: /HPF; Status: F Test: TRANSITIONAL EPITHELIAL AUTO; Value: 1; Range: NONE; Units: /HPF; Status: F Test: MUCUS, URINE; Value: SMALL; Range: NEGATIVE; Status: F Test: HYALINE CAST, URINE AUTO; Value: 0; Range: 0-1; Units: /LPF; Status: F Test: AMORPHOUS SEDIMENT; Value: MODERATE; Range: NEGATIVE; Abnormal: Above high normal; Status: F Lab Order: Urine Culture; SPEC'M 04/13/16 13:08 Test: URINE CULTURE; Value: URINE CULTURE RESULT SPECIMEN APPEARS CONTAMINATED; Status: F Radiology Order: CT Spine,Thoracic W/o Contrast Test: CT Spine,Thoracic W/o Contrast REASON FOR EXAMINATION: Right sided radiculopathy; Clinical: Right-sided radiculopathy.; ; Technique: Axial noncontrast images from C6 through L2 with coronal and sagittal; re-formations.; ; Findings:; Thoracic vertebral bodies are essentially normal for age. Appropriate alignment; and kyphosis noted. There is no evidence for acute fracture / compression injury; or subluxation. Incidental note is made of a benign hemangioma in the T11; vertebral body. Minimal anterior spurring and osteophyte formation with subtle; disc space narrowing appears relatively appropriate for age. No obvious; posterior disc bulges or herniations are appreciated. The spinal canal is patent; and without obvious stenosis. The neural foramen appear patent bilaterally.; ; Impression:; Mild age-related changes.; Neural foramen appear patent bilaterally.; No acute fracture / compression injury.; Benign hemangioma at T11.; ; ; Signed by; Erlin Mckeon MD 04/13/2016 02:01 P; Outcome: 15:03 Discharge ordered by Provider. ef1 15:21 Discharge Assessment: Patient awake, alert and oriented x 3. No cognitive and/or hs1 functional deficits noted. Patient verbalized understanding of disposition instructions. patient administered narcotics - yes. Pt provided with safe discharge. The following High Risk Discharge criteria are identified: None. Discharged to home ambulatory. Condition: stable. Discharge instructions given to patient, Instructed on discharge instructions, follow up and referral plans. medication usage, Demonstrated understanding of instructions, medications, Pt was receptive of discharge instructions/ teaching. Prescriptions given X 3. CT Study completed. Property sent home with patient. 15:22 Patient left the ED. hs1 Signatures: Dispatcher [employer] Gopal Bernardo,JESSEE RN ms2 Rocio Montano RN RN dls Blake Reyes, COIL MAKER COIL MAKER dd6 Sabina Piña, PA-C PA-C ef1 Crystal Munoz RN RN rs3 Magdalene Stevens RN RN hs1 Silvia Savage mm15 Batool Downey,JESSEE RN ms18 Porfirio Morales, COIL MAKER COIL MAKER jrd Nisa Garcia Chart Complete MTDD
--- NOTE | 2016-04-15 16:22 | EDDOCDS ---
Physician Documentation [facility] Name: Noy Rivera Age: 50 yrs Sex: Female : 1965 Arrival Date: 04/13/2016 Time: 12:08 Bed I3 / M3 Private MD: Mandeep Disposition: 04/13/16 15:03 Discharged to Home/Self Care. Impression: Urinary tract infection, site not specified, Dorsalgia - Acute, Hemangioma - Benign Hemangioma at T11. - Condition is Stable. - Discharge Instructions: Urinary Tract Infection, [id number], Back Pain, Adult, [id number]. - Prescriptions for Carlton 5- 325 mg Oral Tablet - take 1 tablet by ORAL route every 6 hours As needed MDD: 4 tabs; 20 tablet. Pyridium 200 mg Oral Tablet - take 1 tablet by ORAL route every 8 hours for 3 days; 9 tablet. Macrobid 100 mg Oral Capsule - take 100 milligram by ORAL route every 12 hours for 10 days; 20 capsule. - Medication Reconciliation, Local Pharmacy Hours form. - Follow up: Mandeep; When: 1 - 2 days; Reason: Recheck today's complaints, Continuance of care. Follow up: Emergency Department; Reason: Worsening of conditions. Follow up: [facility]; When: Call to arrange an appointment; Reason: Further diagnostic work-up, Recheck today's complaints, Continuance of care. - Problem is new. - Symptoms have improved. Historical: - Allergies: PENICILLINS (Hives); - Home Meds: 1. Crestor 10 mg Oral tab 1 tab once daily (Last dose: 04/12/2016) 2. Nexium 80mg daily Oral 1 cap once daily 3. normydine 100mg twice a day 4. ramipril 5 mg Oral tab daily 5. tramadol 50 mg Oral tab 1 tab every 6 hours 6. methocarbamol 750 mg Oral tab 1 tab every 4 hours 7. diclofenac sodium 75 mg oral TbEC 2 times per day - PMHx: Hypercholesterolemia; Hypertension; - PSHx: Hysterectomy; Appendectomy; bilateral knee repair; right footsurgery; eye surgery; - Social history: Smoking status: Patient states was never smoker of tobacco. No barriers to communication noted, The patient speaks fluent Portuguese. - Family history: No immediate family members are acutely ill. - : The pt / caregiver states he / she is not on anticoagulants. Home medication list is obtained from the patient. - Exposure Risk Screening:: None identified. 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 3 in. (160.02 cm) (R); Pain 10/10; 13:25 BP 158 / 98 LA (man/); hs1 13:48 BP 165 / 102; Pulse 68; Resp 20 S; Pulse Ox 94% on R/A; Pain 10/10; ms2 15:14 BP 145 / 90; Pulse 73; Resp 18; Temp 96.7(TE); Pulse Ox 97% ; Pain 7/10; jrd 12:10 Body Mass Index 44.29 (113.40 kg, 160.02 cm) dd6 MDM: 13:00 Recheck B/P ordered. ef1 13:06 Undress patient appropriately for examination ordered. ef1 13:06 IV Saline Lock ordered. ef1 13:06 Amylase Ordered. EDMS 13:06 Basic Metabolic Profile Ordered. EDMS 13:06 CBC with Diff Ordered. EDMS 13:06 Lipase Ordered. EDMS 13:06 Liver Profile Ordered. EDMS 13:06 Urinalysis Ordered. EDMS 13:06 Urine Culture Ordered. EDMS 13:07 NOTHING BY MOUTH+DIET ordered. EDMS 13:28 Ondansetron 4 mg IVP once ordered. ef1 13:28 morphine 4 mg IVP once ordered. ef1 13:29 CT Spine,Thoracic W/o Contrast Ordered. EDMS 14:06 Financial registration complete. mm15 14:22 [place] [place] was scanned into BookTour and attached to record. mm15 14:30 Basic Metabolic Profile Reviewed. ef1 14:30 CBC with Diff Reviewed. ef1 14:30 Urinalysis Reviewed. ef1 14:30 Amylase Reviewed. ef1 14:30 Lipase Reviewed. ef1 14:30 Liver Profile Reviewed. ef1 14:30 CT Spine,Thoracic W/o Contrast Reviewed. ef1 14:32 Nitrofurantoin 100 mg PO once ordered. ef1 14:32 Phenazopyridine 200 mg PO once ordered. ef1 14:32 HYDROcodone-acetaminophen 5 mg-325 mg 1 tabs PO once ordered. ef1 21:35 T-Sheet-- Draft Copy was scanned into BookTour and attached to record. klr Administered Medications: 13:43 Drug: Ondansetron 4 mg Route: IVP; Site: left antecubital; ms2 13:44 Drug: morphine 4 mg [morphine 4 mg/mL intravenous cartridge (1 mL)] Route: IVP; Site: ms2 left antecubital; 13:48 Follow up: BP 165 / 102; Pulse 68 bpm; Resp 20 bpm Spontaneous; Pulse Ox 94% RA; Pain ms2 01/06 Adult 14:37 Drug: Nitrofurantoin 100 mg Route: PO; ms18 14:37 Drug: Phenazopyridine 200 mg [phenazopyridine 100 mg tablet (2 tabs)] Route: PO; ms18 14:37 Drug: HYDROcodone-acetaminophen 1 tabs [hydrocodone 5 mg-acetaminophen 325 mg tablet (1 ms18 tabs)] Route: PO; Signatures: Dispatcher [employer]Host EDMS Sabina Piña, ELISE PAArlen ef1 Crystal Munoz RN RN rs3 Magdalene Stevens RN RN hs1 Silvia Savage mm15 Nisa Garcia Michele RN ms2 Batool Downey RN ms18 The chart was reviewed and I authenticate all verbal orders and agree with the evaluation and treatment provided.Attachments: 14:22 [facility] [place] mm15 21:35 T-Sheet-- Draft Copy klr Chart Complete MTDD
== END 2016-04-13 15:22 | disposition home or self-care (01) ==
LOC: M ED 12:08
DX: N39.0 Urinary tract infection, site not specified (principal); D18.09 Hemangioma of other sites; M54.9 Dorsalgia, unspecified; E78.00 Pure hypercholesterolemia, unspecified; I10 Essential (primary) hypertension; Z79.899 Other long term (current) drug therapy; Z88.0 Allergy status to penicillin
CPT/HCPCS: 36415; 72128; 80048; 80076; 81001; 82150; 83690; 85025; 87086; 96374; 96375; 99284; J2405

== ENCOUNTER 2016-12-10 06:58 | Outpatient (CLI) | payer OTHER ==
[~2016-12-10] VITALS: Ht 162.6 cm; Wt 113.4 kg
[~2016-12-10 06:58] MED LIST changes: +CHEW500C2 PO; +ESOM1CAP5 PO; +LABE10TAB PO; +RAMI5CA PO; +ROSU10TA2 PO
[2016-12-10] MEDS ORDERED: NS 1,000 ML IV ONE (07:45)
[2016-12-10] MEDS ORDERED: PROPOFOL 200 MG/20 ML VIAL As Ordered ONE (08:25)
[2016-12-10] MEDS ORDERED: LIDOCAINE 2% INJ 100 MG/5 ML SDV (FOR ANES.) As Ordered ONE (08:26)
--- NOTE | 2016-12-10 08:27 | ROOR ---
Patient Name: Noy Rivera Procedure Date: 12/10/2016 8:13 AM Date of : 1965 Age: 51 Room: [facility] Gender: Female Note Status: Finalized Procedure: Upper GI endoscopy Indications: Heartburn Providers: Adriano Barker MD Referring MD: ADI WALSH JR, MD Requesting Provider: Medicines: Monitored Anesthesia Care Complications: No immediate complications. Procedure: Pre-Anesthesia Assessment: - The heart rate, respiratory rate, oxygen saturations, blood pressure, adequacy of pulmonary ventilation, and response to care were monitored throughout the procedure. The Endoscope was introduced through the mouth, and advanced to the second part of duodenum. The upper GI endoscopy was accomplished without difficulty. The patient tolerated the procedure well. Findings: The Z-line was irregular and was found 40 cm from the incisors. A small hiatal hernia was present. No other significant abnormalities were identified in a careful examination of the stomach. The exam of the duodenum was otherwise normal. Impression: - Z-line irregular, 40 cm from the incisors. - Small hiatal hernia. - No specimens collected. - The examination was otherwise normal. Recommendation: - Patient has a contact number available for emergencies. The signs and symptoms of potential delayed complications were discussed with the patient. Return to normal activities tomorrow. Written discharge instructions were provided to the patient. - High fiber diet. - Discharge patient to home. - Continue present medications. - Follow an antireflux regimen. - Return to referring physician. - The findings and recommendations were discussed with the patient's family. Adriano Barker MD Adriano Barker MD 12/10/2016 8:26:54 AM This report has been signed electronically. Number of Addenda: 0 Note Initiated On: 12/10/2016 8:13 AM Estimated Blood Loss: Estimated blood loss: none.
--- NOTE | 2016-12-10 08:40 | ROOR ---
Patient Name: Noy Rivera Procedure Date: 12/10/2016 8:13 AM Date of : 1965 Age: 51 Room: [facility] Gender: Female Note Status: Finalized Procedure: Total Colonoscopy to Cecum Indications: Screening for colorectal malignant neoplasm Providers: Adriano Barker MD Referring MD: ADI WALSH JR, MD Requesting Provider: Medicines: Monitored Anesthesia Care Complications: No immediate complications. Procedure: Pre-Anesthesia Assessment: - The heart rate, respiratory rate, oxygen saturations, blood pressure, adequacy of pulmonary ventilation, and response to care were monitored throughout the procedure. The Colonoscope was introduced through the anus and advanced to the cecum, identified by appendiceal orifice and ileocecal valve. The colonoscopy was performed without difficulty. The patient tolerated the procedure well. The quality of the bowel preparation was excellent. Findings: The perianal and digital rectal examinations were normal. Non-bleeding internal hemorrhoids were found during retroflexion. The hemorrhoids were small and Grade I (internal hemorrhoids that do not prolapse). Scattered small-mouthed diverticula were found in the recto-sigmoid colon, sigmoid colon and descending colon. The exam was otherwise without abnormality on direct and retroflexion views. Impression: - Non-bleeding internal hemorrhoids. - Diverticulosis in the recto-sigmoid colon, in the sigmoid colon and in the descending colon. - The examination was otherwise normal on direct and retroflexion views. - No specimens collected. - The exam was otherwise normal to the cecum. Recommendation: - Patient has a contact number available for emergencies. The signs and symptoms of potential delayed complications were discussed with the patient. Return to normal activities tomorrow. Written discharge instructions were provided to the patient. - High fiber diet. - Discharge patient to home. - Continue present medications. - Repeat colonoscopy in 10 years for screening purposes. - Return to referring physician. - The findings and recommendations were discussed with the patient's family. Adriano Barker MD Adriano Barker MD 12/10/2016 8:39:56 AM This report has been signed electronically. Number of Addenda: 0 Note Initiated On: 12/10/2016 8:13 AM Estimated Blood Loss: Estimated blood loss: none.
[2016-12-10 09:00] VITALS: BP 128/70
== END 2016-12-10 09:18 | disposition home or self-care (01) ==
LOC: M OPP 06:58
PROVIDERS: ATTEND Internal Medicine Gastroenterology
DX: Z12.11 Encounter for screening for malignant neoplasm of colon (principal); K64.0 First degree hemorrhoids; K57.30 Diverticulosis of large intestine without perforation or abscess without bleeding; R12 Heartburn; K22.8 Other specified diseases of esophagus; K44.9 Diaphragmatic hernia without obstruction or gangrene; I10 Essential (primary) hypertension; E78.5 Hyperlipidemia, unspecified; F32.9 Major depressive disorder, single episode, unspecified; R51 Headache; J45.909 Unspecified asthma, uncomplicated; Z88.8 Allergy status to other drugs, medicaments and biological substances; Z88.0 Allergy status to penicillin; Z91.048 Other nonmedicinal substance allergy status

== ENCOUNTER → 2017-04-03 | Outpatient (CLI) | payer OTHER | LOC: M WUC 15:11 | DX: M79.671 Pain in right foot (principal) ==

== ENCOUNTER 2017-05-21 21:24 | Emergency (ER) | payer OTHER ==
[2017-05-21] MEDS: ONDANSETRON 4MG/2ML VIAL (J2405) IV ×4 (22:00→23:13)
[2017-05-21] MEDS: MORPHINE 4 MG/ML 1ML VIAL (J2270) IV ×2 (22:00)
[2017-05-21] MEDS: NS 1,000 ML IV ×2 (22:00)
[2017-05-21 22:13] LABS: AMORPHOUS SEDIMENT RFX SMALL (NEGATIVE); KETONE, URINE AUTO RFX NEGATIVE (NEGATIVE); LEUKOCYTE ESTERASE UR AUTO RFX 2+ (NEGATIVE); MUCUS, URINE RFX SMALL (NEGATIVE); NITRITE, URINE AUTO RFX NEGATIVE (NEGATIVE); RBC, URINE AUTO RFX 4 /HPF (0-3); SQUAM EPITHELIAL CELL UR AURFX 8 /HPF (0-6); WBC, URINE AUTO RFX 5 /HPF (0-3)
[2017-05-21 22:25] LABS: BASO # 0.1 10^3/uL (0.0-0.2); BASO % 0.9 % (0.0-1.0); EOS # 0.2 10^3/uL (0.0-0.50); EOS % 2.5 % (0.0-3.0); HEMATOCRIT 41.3 % (36.0-47.0); HEMOGLOBIN 13.8 g/dl (12.0-16.0); IMMATURE GRANULOCYTE % 0.4 % (0-3.0); LYMPH # 3.8 10^3/uL (1.5-4.5); LYMPH % 47.5 % (24.0-44.0); MEAN CORPUSCULAR HEMOGLOBIN 29.4 pg (27.0-33.0); MEAN CORPUSCULAR HGB CONC 33.4 g/dl (32.0-36.5); MEAN CORPUSCULAR VOLUME 88.1 fl (80.0-96.0); MONO # 0.8 10^3/uL (0.0-0.8); MONO % 9.4 % (0.0-5.0); NEUTROPHILS # 3.2 10^3/uL (1.8-7.7); NEUTROPHILS % 39.3 % (36.0-66.0); PLATELET COUNT, AUTOMATED 354 10^3/uL (150-450); RED BLOOD COUNT 4.69 10^6/uL (4.00-5.40); RED CELL DISTRIBUTION WIDTH 11.9 % (11.5-14.5); WHITE BLOOD COUNT 8.1 10^3/uL (4.0-10.0)
[2017-05-21 22:46] LABS: ALBUMIN 4.4 GM/DL (3.2-5.2); ALBUMIN/GLOBULIN RATIO 1.38 (1.00-1.93); ALKALINE PHOSPHATASE 87 U/L (45-117); ALT/SGPT 28 U/L (12-78); AMYLASE 60 U/L (25-115); ANION GAP 6 MEQ/L (8-16); AST/SGOT 26 U/L (7-37); BILIRUBIN,DIRECT < 0.1 MG/DL (0.0-0.2); BILIRUBIN,TOTAL 0.2 MG/DL (0.2-1.0); BLOOD UREA NITROGEN 17 MG/DL (7-18); CALCIUM LEVEL 9.2 MG/DL (8.5-10.1); CARBON DIOXIDE LEVEL 30 MEQ/L (21-32); CHLORIDE LEVEL 103 MEQ/L (98-107); CREATININE FOR GFR 0.86 MG/DL (0.55-1.30); GLOMERULAR FILTRATION RATE > 60.0 (>51); GLUCOSE, FASTING 87 MG/DL (70-100); LIPASE 205 U/L (73-393); POTASSIUM SERUM 4.6 MEQ/L (3.5-5.1); SODIUM LEVEL 139 MEQ/L (136-145); TOTAL PROTEIN 7.6 GM/DL (6.4-8.2)
[2017-05-21 22:58] LABS: CONTROL LINE UCG INT CTR LINE PRESENT; URINE PREG TEST NEGATIVE (NEGATIVE)
[2017-05-21] MEDS ORDERED: ISOVUE-370 76% 100ML VIAL (Q9967) As Ordered ×2 (23:14)
== END 2017-05-22 00:16 | disposition home or self-care (01) ==
LOC: M ED 05-22 00:16
DX: K80.50 Calculus of bile duct without cholangitis or cholecystitis without obstruction (principal); R10.11 Right upper quadrant pain; I10 Essential (primary) hypertension; K21.9 Gastro-esophageal reflux disease without esophagitis; K76.0 Fatty (change of) liver, not elsewhere classified; Z79.899 Other long term (current) drug therapy; Z88.8 Allergy status to other drugs, medicaments and biological substances; Z91.89 Other specified personal risk factors, not elsewhere classified
CPT/HCPCS: J2270

== ENCOUNTER → 2017-06-08 | Outpatient (CLI) | payer OTHER | LOC: M RAD 06:30 | DX: R10.11 Right upper quadrant pain (principal); K76.0 Fatty (change of) liver, not elsewhere classified | CPT/HCPCS: 76705 ==

== ENCOUNTER 2019-01-27 10:26 | Emergency (ER) | payer OTHER ==
[~2019-01-27] VITALS: Ht 160 cm; Wt 122.7 kg
[~2019-01-27 10:26] MED LIST changes: -/ESOM40CA OR; +CRES10TA32 OR; +NEXI1CAP3 OR; +RAMI1CAP24 PO; -RAMI5CA PO; -ROSU10TA OR; -ROSU10TA2 PO; +ROSU10TA6 PO; +ZOFR4TAB14 PO
[2019-01-27] MEDS ORDERED: MELO15TA28 (10:36)
[2019-01-27 11:05] LABS: HEMATOCRIT 39.7 % (36.0-47.0); HEMOGLOBIN 13.1 g/dl (12.0-15.5); MEAN CORPUSCULAR HEMOGLOBIN 29.4 pg (27.0-33.0); PLATELET COUNT, AUTOMATED 328 10^3/uL (150-450); RED BLOOD COUNT 4.46 10^6/uL (4.00-5.40); WHITE BLOOD COUNT 9.7 10^3/uL (4.0-10.0)
[2019-01-27 11:21] LABS: BLOOD UREA NITROGEN 16 MG/DL (7-18); CALCIUM LEVEL 9.5 MG/DL (8.5-10.1); CARBON DIOXIDE LEVEL 29 MEQ/L (21-32); CHLORIDE LEVEL 110 MEQ/L (98-107); GLOMERULAR FILTRATION RATE > 60.0 (>51); GLUCOSE, FASTING 101 MG/DL (70-100); POTASSIUM SERUM 4.1 MEQ/L (3.5-5.1); SODIUM LEVEL 142 MEQ/L (136-145)
[2019-01-27 11:42] LABS: ALBUMIN 4.1 GM/DL (3.2-5.2); ALT/SGPT 26 U/L (12-78); BILIRUBIN,DIRECT < 0.1 MG/DL (0.0-0.2); BILIRUBIN,TOTAL 0.5 MG/DL (0.2-1.0); LIPASE 125 U/L (73-393); TOTAL PROTEIN 7.1 GM/DL (6.4-8.2)
--- NOTE | 2019-01-27 11:50 | REP ---
Two-view chest: 01/27/2019. Indication: Dyspnea. Cough. Comparison: 01/20/2012. Findings: The lungs are clear. There is no significant pleural effusion or pneumothorax. Degenerative sequelae of the thoracic spine are noted. Cardiac silhouette is at the upper limits of normal in size. Impression: Clear lungs. Electronically Signed by Gurpreet Vernon DO 01/27/2019 11:41 A
[2019-01-27] MEDS ORDERED: BENZ200C70 PO (12:58)
[2019-01-27] MEDS ORDERED: CARA1TAB6 PO (12:58)
[2019-01-27] MEDS ORDERED: SIME180C PO (12:58)
[2019-01-27 13:04] VITALS: BP 141/72
--- NOTE | 2019-01-27 15:26 | REP ---
Clinical: Right upper quadrant pain. Technique: Real time keith scale ultrasound examination using curved array transducer. Findings: The liver is diffusely increased echogenicity with poor through transmission suggesting fatty infiltration. The pancreas is incompletely evaluated due to interposed bowel gas. The gallbladder is normal and without gallstones, wall thickening, or pericholecystic fluid. No biliary ductal dilatation is appreciated and the common bile duct measures 5.7 mm diameter. Right kidney is normal in reniform shape without hydronephrosis and measures 12.1 x 7.1 x 5.5 cm. No ascites. Impression: 1. Hepatic steatosis. Electronically Signed by Erlin Mckeon MD 01/27/2019 12:13 P
== END 2019-01-27 13:07 | disposition home or self-care (01) ==
LOC: M ED 10:26
DX: J06.9 Acute upper respiratory infection, unspecified (principal); R10.11 Right upper quadrant pain; Z88.0 Allergy status to penicillin; Z88.5 Allergy status to narcotic agent

== ENCOUNTER → 2019-02-09 | Outpatient (CLI) | payer OTHER ==
[~2019-02-09] MED LIST changes: +BENZ200C70 PO; +CARA1TAB6 PO; +MELO15TA28; +SIME180C PO
--- NOTE | 2019-02-09 11:07 | REP ---
Hepatobiliary scan and gallbladder ejection fraction: History: Right upper quadrant abdominal pain. Technique: 6.6 mCi of technetium-99m mebrofenin was injected and sequential anterior images are acquired. 65 minutes after the mebrofenin injection, the patient consumed 8 ounces Ensure and an additional 60 minutes of imaging was acquired. Regions of interest are plotted around the gallbladder. Findings: The initial hepatocellular parenchymal uptake phase is normal and homogeneous. Intra- and extra-hepatic bile ducts are labeled by the 10 -minute image. The gallbladder is first labeled on the 10 -minute image. There is normal washout from the liver parenchyma into the gallbladder and small intestine on subsequent images. The gallbladder ejection fraction is 60 %. Values greater than 35 % are considered normal with this technique. Impression: Normal hepatobiliary scan and normal gallbladder ejection fraction. Electronically Signed by Jose Shields MD 02/09/2019 10:58 A
== END ==
LOC: M RAD 07:50
PROVIDERS: ATTEND Internal Medicine
DX: R10.9 Unspecified abdominal pain (principal)

== ENCOUNTER → 2019-03-12 | Outpatient (CLI) | payer OTHER ==
[2019-03-12 13:48] LABS: BLOOD UREA NITROGEN 17 MG/DL (7-18); CREATININE FOR GFR 0.82 MG/DL (0.55-1.30); GLOMERULAR FILTRATION RATE > 60.0 (>51)
== END ==
LOC: M WUC 11:32
PROVIDERS: ATTEND Internal Medicine Gastroenterology
DX: R12 Heartburn (principal); R14.0 Abdominal distension (gaseous); R19.4 Change in bowel habit; R10.9 Unspecified abdominal pain

== ENCOUNTER → 2019-03-15 | Outpatient (CLI) | payer OTHER ==
[~2019-03-15] MED LIST changes: +GASTROGRAFIN SOLUTION 30ML (Q9963) As Ordered ONE; +ISOVUE-370 76% 100ML VIAL (Q9967) As Ordered ONE
--- NOTE | 2019-03-15 19:20 | REP ---
REASON: Change in bowel habit. PRIORS: The latest prior for comparison is 05/21/2017, this is a CT abdomen and pelvis with oral and intravenous contrast administration. CONTRAST: 100 mL Isovue-370. The lung bases are clear and unchanged. The liver, gallbladder, spleen, pancreas, adrenal glands, and kidneys are within normal limits. The abdominal aorta and paraaortic regions are within normal limits. The bowel loops and their mesenteries are within normal limits. There is no intraabdominal mass or adenopathy. There is no free fluid or free air. CT PELVIS: The bowel loops and their mesenteries are within normal limits. There is no mass or adenopathy. There is no free fluid or air. Bone window technique throughout the exam shows the osseous structures to be stable and intact. Spinal degenerative changes are noted status quo. IMPRESSION:There is no evidence of acute intraabdominal or intrapelvic disease. There has been no significant change compared to the prior exam. Findings as described above. A negative CT scan does not obviate further imaging of the colon with modalities such as colonoscopy. Electronically Signed by Antonio Davidson DO 03/16/2019 11:32 A
== END ==
LOC: M RAD 13:52
PROVIDERS: ATTEND Internal Medicine Gastroenterology
DX: R10.9 Unspecified abdominal pain (principal)

== ENCOUNTER 2019-03-24 15:16 | Inpatient (IN) | payer OTHER ==
[~2019-03-24] VITALS: Ht 162.6 cm; Wt 122.0 kg
[~2019-03-24 15:16] MED LIST changes: -GASTROGRAFIN SOLUTION 30ML (Q9963) As Ordered ONE; -ISOVUE-370 76% 100ML VIAL (Q9967) As Ordered ONE
--- NOTE | 2019-03-24 16:03 | REP ---
Clinical: Shortness of breath . Comparison: 01/27/2019 . Technique: PA and lateral. Findings: The mediastinum and cardiac silhouette are normal. Subtle right lower lobe infiltrate suggested. No effusion. No pneumothorax. Skeletal structures intact. Impression: 1. Subtle forming right lower lobe infiltrate. Electronically Signed by Erlin Mckeon MD 03/24/2019 03:54 P
[2019-03-24 16:14] LABS: INFLUENZA A AMPLIFICATION NEGATIVE (NEGATIVE); INFLUENZA B AMPLIFICATION NEGATIVE (NEGATIVE)
[2019-03-24] MEDS ORDERED: CEFU1TAB22 PO (16:37)
[2019-03-24] MEDS ORDERED: VENTAER INH (16:37)
[2019-03-24] MEDS ORDERED: LINZ145C PO (16:37)
[2019-03-24] MEDS ORDERED: NON-325T5 PO (16:40)
[2019-03-24] MEDS ORDERED: IPRATROPIUM 0.5MG/ALBUTEROL 2.5MG INH SOL UD 3ML (DUONEB)(J7620) NEB ONE ×2 (17:30→20:00)
[2019-03-24 18:03] LABS: BASO % 0.8 % (0.0-1.0); EOS # 0.1 10^3/uL (0.0-0.5); EOS % 1.7 % (0.0-3.0); HEMATOCRIT 42.1 % (36.0-47.0); HEMOGLOBIN 13.5 g/dl (12.0-15.5); LYMPH # 1.4 10^3/uL (1.5-5.0); LYMPH % 27.2 % (24.0-44.0); MEAN CORPUSCULAR HEMOGLOBIN 28.9 pg (27.0-33.0); MEAN CORPUSCULAR HGB CONC 32.1 g/dl (32.0-36.5); MEAN CORPUSCULAR VOLUME 90.1 fl (80.0-96.0); MONO # 0.7 10^3/uL (0.0-0.8); MONO % 12.8 % (0.0-5.0); NEUTROPHILS % 57.1 % (36.0-66.0); PLATELET COUNT, AUTOMATED 324 10^3/uL (150-450); RED BLOOD COUNT 4.67 10^6/uL (4.00-5.40); WHITE BLOOD COUNT 5.2 10^3/uL (4.0-10.0)
[2019-03-24 18:15] LABS: INR 1.06; PROTHROMBIN TIME 13.5 SECONDS (11.8-14.0)
[2019-03-24 18:16] LABS: PARTIAL THROMBOPLASTIN TIME 26.8 SECONDS (25.0-38.4)
[2019-03-24 19:50] LABS: ALT/SGPT 40 U/L (12-78); BILIRUBIN,DIRECT 0.1 MG/DL (0.0-0.2); BILIRUBIN,TOTAL 0.5 MG/DL (0.2-1.0); BLOOD UREA NITROGEN 9 MG/DL (7-18); CALCIUM LEVEL 8.8 MG/DL (8.5-10.1); CARBON DIOXIDE LEVEL 24 MEQ/L (21-32); CHLORIDE LEVEL 104 MEQ/L (98-107); CK-MB VALUE MASS 1.2 NG/ML (<3.6); CPK CREATINE PHOSPHOKINASE 307 U/L (26-192); FREE T4 1.36 NG/DL (0.76-1.46); GLOMERULAR FILTRATION RATE > 60.0 (>51); GLUCOSE, FASTING 86 MG/DL (70-100); MB/CK RELATIVE INDEX 0.39 (< OR =4); POTASSIUM SERUM 3.5 MEQ/L (3.5-5.1); SODIUM LEVEL 137 MEQ/L (136-145); TOTAL PROTEIN 7.3 GM/DL (6.4-8.2); TROPONIN I < 0.02 NG/ML (< 0.10)
[2019-03-24] MEDS ORDERED: ACET500T15 PO (20:40)
[2019-03-24] MEDS ORDERED: LevoFLOXacin IV 750 MG in IV 1 EA IV ONE (21:00)
--- NOTE | 2019-03-24 21:10 | ECGEPIP ---
[facility] - ED Test Date: 2019-03-24 Pat Name: ROSE ALVES Department: Room: - Gender: Female [employer] Specialist: enedina : 1965 Requested By: Rene Paul Order Number: [id number] Reading MD: Rene Lewis Measurements Intervals [place] Rate: 84 P: 42 NV: 151 QRS: 34 QRSD: 92 T: 58 QT: 384 QTc: 455 Interpretive Statements SINUS RHYTHM NO PRIORS FOR COMPARISON Electronically Signed on 03-24-2019 21:10:49 EST by Rene Lewis
[2019-03-24] MEDS: ACETAMINOPHEN 500 MG TAB PO PRN (22:14)
[2019-03-24] MEDS ORDERED: POTASSIUM CHLORIDE 10 MEQ SR TABLET PO ONE (22:15)
[2019-03-24] MEDS: ROSUVASTATIN 10 MG TAB (CRESTOR) PO SCH (22:27)
[2019-03-24] MEDS: LABETALOL 100 MG TAB PO SCH (22:27)
--- NOTE | 2019-03-24 22:48 | HPEPDOC ---
[facility] Medical History & Physical Date of Admission Mar 24, 2019 Date of Service: Mar 24, 2019 Attending Physician: VINNIE HERNÁNDEZ MD History and Physical CHIEF COMPLAINT: SOB & Cough x10 days HISTORY OF PRESENT ILLNESS: 53-year-old female with past medical history of hypertension, hyperlipidemia and GERD presents with shortness of breath and cough. Symptoms started 10 days ago with cough. Patient told shortness of breath, fever and chest pain over the past 2-3 days. She went to urgent care 3 days ago, was prescribed cefuroxime, symptoms of a worsening since. She also reports associated myalgias and diarrhea. She denies any sick contacts. She denies any chest pain, nausea, vomiting, abdominal pain or headache at this time. 10 point review of system is negative except for above PAST MEDICAL HISTORY: 1. Hypertension. 2. Hyperlipidemia. 3. GERD. PAST SURGICAL HISTORY: 1. Hysterectomy. 2. Neck fusion. 3. Knee surgery. 4. Appendectomy SOCIAL HISTORY: Never smoked. Denies alcohol. Denies drug use FAMILY HISTORY: Family history positive for heart disease ALLERGIES: Please see below. HOME MEDICATIONS: Please see below. PHYSICAL EXAMINATION: VITAL SIGNS: Please see below. GENERAL: No distress HEENT: Normocephalic, atraumatic, moist mucous membranes NECK: Supple CARDIOVASCULAR EXAMINATION: S1, S2, no murmurs RESPIRATORY EXAMINATION: Scattered rhonchi, no wheezing ABDOMINAL EXAMINATION: Soft, nontender, nondistended, positive bowel sounds EXTREMITIES: Range of motion intact SKIN: No rash NEUROLOGICAL EXAMINATION: Alert and oriented 3, no focal deficits PSYCHIATRIC EXAMINATION: Calm and cooperative LABORATORY DATA: See below. IMAGING: Chest x-ray with subtle right lower lobe opacity MICROBIOLOGY: Please see below. ASSESSMENT: 53-year-old female with past medical history of hypertension, hyperlipidemia and GERD presents from home with symptoms concerning for viral URI versus pneumonia. PLAN: 1. Viral URI. Based on patient's history, clinical presentation, labs and imaging viral URI is the most likely etiology for her symptoms, respiratory viral panel pending, pro-calcitonin pending, received Levaquin in the ED, will hold off on further antibiotics for now, can restart antibiotic in the morning if indicated. 2. Hypertension. Continue home labetalol and Ramipril 3. Hyperlipidemia. Continue Crestor 4. GERD. Continue PPI DVT prophylaxis: Heparin subcutaneous GI prophylaxis: Home PPI Vital Signs Vital Signs Date Time Temp Pulse Resp B/P (MAP) Pulse Ox O2 Delivery O2 Flow Rate FiO2 03/24/19 22:00 85 20 176/90 (118) 92 Room Air 03/24/19 15:18 98.1 Laboratory Data Labs 24H Laboratory Tests 2 03/24/19 15:30: Influenza Type A (RT-PCR) NEGATIVE, Influenza Type B (RT-PCR) NEGATIVE 03/24/19 17:17: Immature Granulocyte % (Auto) 0.4, Neutrophils (%) (Auto) 57.1, Lymphocytes (%) (Auto) 27.2, Monocytes (%) (Auto) 12.8H, Eosinophils (%) (Auto) 1.7, Basophils (%) (Auto) 0.8, Neutrophils # (Auto) 3.0, Lymphocytes # (Auto) 1.4L, Monocytes # (Auto) 0.7, Eosinophils # (Auto) 0.1, Basophils # (Auto) 0.0, Nucleated Red Blood Cells % (auto) 0.0, Prothrombin Time 13.5, Prothromb Time International Ratio 1.06, Activated Partial Thromboplast Time 26.8 03/24/19 19:07: Anion Gap 9, Glomerular Filtration Rate > 60.0, Calcium Level 8.8, Total Bilirubin 0.5, Direct Bilirubin 0.1, Aspartate Amino Transf (AST/SGOT) 47H, Alanine Aminotransferase (ALT/SGPT) 40, Alkaline Phosphatase 87, Total Creatine Kinase 307H, Creatine Kinase MB 1.2, Creatine Kinase MB Relative Index 0.39, Troponin I < 0.02, Total Protein 7.3, Albumin 4.0, Albumin/Globulin Ratio 1.21, Thyroid Stimulating Hormone (TSH) 1.420, Free Thyroxine 1.36 CBC/BMP Laboratory Tests 03/24/19 17:17 03/24/19 19:07 Microbiology Microbiology 03/24/19 Blood Culture, Received Pending 03/24/19 Blood Culture, Received Pending Home Medications Scheduled Esomeprazole Magnesium (Esomeprazole Magnesium) 40 Mg Cap, 40 MG PO BID Labetalol HCl (Labetalol HCl) 100 Mg Tab, 100 MG PO BID Linaclotide (Linzess) 145 Mcg Capsule, 145 MCG PO DAILY NEW MEDICATION - PATIENT HAS NOT STARTED Ramipril (Ramipril) 5 Mg Cap, 5 MG PO DAILY Rosuvastatin Calcium (Rosuvastatin Calcium) 10 Mg Tab, 10 MG PO QHS cefUROXime axetil (Cefuroxime) 500 Mg Tablet, 500 MG PO BID FILLED 03/22/19 FOR 10 DAYS Scheduled PRN Acetaminophen (Acetaminophen) 500 Mg Tablet, 1,000 MG PO QID PRN for PAIN Albuterol Sulfate (Ventolin Hfa) 18 Gm Hfa.aer.ad, 2 PUFF INH QID PRN for SHORTNESS OF BREATH Allergies Coded Allergies: Penicillins (Verified Allergy, Intermediate, HIVES, 03/24/19) hydrocortisone (Verified Allergy, Intermediate, SEVER RASH, 03/24/19) USUALLY TURNS TO CELLULITIS TAPE (Verified Adverse Reaction, Intermediate, RASH, 12/02/16) A-FIB/CHADSVASC A-FIB History Current/History of A-Fib/PAF?: No VINNIE HERNÁNDEZ MD Mar 24, 2019 22:48
[2019-03-24 23:51] VITALS: BP 130/92
[2019-03-25] MEDS: HEPARIN SOD (PORCINE) 5000 UNITS/ML VIAL SC SCH ×3 (05:56→20:59)
[2019-03-25] MEDS: ACETAMINOPHEN 500 MG TAB PO PRN ×3 (05:56→21:09)
[2019-03-25 06:00] VITALS: BP 139/93
[2019-03-25] MEDS: ALBUTEROL SULFATE 2.5 MG/0.5 ML INH NEB SOLN NEB SCH ×2 (08:00→15:10)
[2019-03-25 08:55] LABS: HEMATOCRIT 40.9 % (36.0-47.0); HEMOGLOBIN 13.3 g/dl (12.0-15.5); MEAN CORPUSCULAR HEMOGLOBIN 28.9 pg (27.0-33.0); MEAN CORPUSCULAR HGB CONC 32.5 g/dl (32.0-36.5); MEAN CORPUSCULAR VOLUME 88.7 fl (80.0-96.0); PLATELET COUNT, AUTOMATED 330 10^3/uL (150-450); RED BLOOD COUNT 4.61 10^6/uL (4.00-5.40); WHITE BLOOD COUNT 5.4 10^3/uL (4.0-10.0)
[2019-03-25 09:20] LABS: ALT/SGPT 33 U/L (12-78); BILIRUBIN,TOTAL 0.4 MG/DL (0.2-1.0); BLOOD UREA NITROGEN 9 MG/DL (7-18); CALCIUM LEVEL 8.9 MG/DL (8.5-10.1); CARBON DIOXIDE LEVEL 24 MEQ/L (21-32); CHLORIDE LEVEL 105 MEQ/L (98-107); GLOMERULAR FILTRATION RATE > 60.0 (>51); GLUCOSE, FASTING 92 MG/DL (70-100); MAGNESIUM LEVEL 2.3 MG/DL (1.8-2.4); SODIUM LEVEL 138 MEQ/L (136-145); TOTAL PROTEIN 7.7 GM/DL (6.4-8.2)
[2019-03-25] MEDS: PANTOPRAZOLE 40MG TAB (PROTONIX) PO SCH (10:10)
[2019-03-25] MEDS: ramipriL 5 MG CAP PO SCH (10:10)
[2019-03-25] MEDS: LABETALOL 100 MG TAB PO SCH ×2 (10:10→20:59)
--- NOTE | 2019-03-25 13:33 | IPNPDOC ---
Text Note Date of Service The patient was seen on 03/25/19. NOTE SUBJECTIVE: Continues to have Cough and SOB is a little better, continues to feel weak , tired with body aches. Says feeling hungry and would like to try some diet. No nausea or vomiting or diarrhea. GENERAL: No distress HEENT: Normocephalic, atraumatic, moist mucous membranes, Anicteric eyes NECK: Supple, No JVD, No thyromegaly CARDIOVASCULAR EXAMINATION: S1, S2 regular, normal rate, no murmurs or rub or gallop. RESPIRATORY EXAMINATION: Scattered rhonchi, and wheezing ABDOMINAL EXAMINATION: Soft, nontender, nondistended, positive bowel sounds EXTREMITIES: Range of motion intact SKIN: No rash NEUROLOGICAL EXAMINATION: Alert and oriented 3, no focal deficits PSYCHIATRIC EXAMINATION: Calm and cooperative LABORATORY DATA: See below. IMAGING: Chest x-ray with subtle right lower lobe opacity MICROBIOLOGY: Please see below. ASSESSMENT: 53-year-old female with past medical history of hypertension, hyperlipidemia and GERD, Neck fusion presents from home with shortness of breath and cough. Patient had shortness of breath, fever and chest pain over the past 2 -3 days. She went to urgent care 3 days ago, was prescribed cefuroxime, symptoms have been worsening since then. She also reports associated myalgias and diarrhea. She was found to have Human metapneumovirus in the respiratory panel. Chest Xray showed early Right lower lobe infiltrates. Admitted for Viral URI and viral pneumonia. Viral URI with Probable viral pneumonia. No fever, WBC normal. pro-calcitonin pending, received Levaquin in the ED, will hold off on further antibiotics for now, can restart antibiotic if procalcitonin is elevated. Hypertension. Continue home labetalol and Ramipril Hyperlipidemia. Continue Crestor GERD. Continue PPI DVT prophylaxis: Heparin subcutaneous GI prophylaxis: Home PPI VS,Fishbone, I+O VS, Fishbone, I+O Laboratory Tests 03/24/19 17:17 03/24/19 19:07 Vital Signs Date Time Temp Pulse Resp B/P (MAP) Pulse Ox O2 Delivery O2 Flow Rate FiO2 03/25/19 06:00 98.6 89 21 139/93 (108) 95 Room Air I&O- Last 24 Hours up to 6 AM 03/25/19 06:00 Intake Total 150 ml Output Total 600 ml Balance -450 ml LAUREL SZYMANSKI MD Mar 25, 2019 08:03
[2019-03-25 14:00] VITALS: BP 147/91
[2019-03-25] MEDS ORDERED: SODIUM CHLORIDE 0.9% 1000ML IV ONE (15:30)
[2019-03-25] MEDS: IPRATROPIUM 0.5MG/ALBUTEROL 2.5MG INH SOL UD 3ML (DUONEB)(J7620) NEB PRN ×2 (17:04→21:08)
[2019-03-25] MEDS: ROSUVASTATIN 10 MG TAB (CRESTOR) PO SCH (20:59)
[2019-03-25 22:00] VITALS: BP 148/82
[2019-03-26] MEDS: ALBUTEROL SULFATE 2.5 MG/0.5 ML INH NEB SOLN NEB SCH ×2 (01:38→07:07)
[2019-03-26] MEDS: HEPARIN SOD (PORCINE) 5000 UNITS/ML VIAL SC SCH (05:07)
[2019-03-26 06:00] VITALS: BP 147/81
[2019-03-26] MEDS: PANTOPRAZOLE 40MG TAB (PROTONIX) PO SCH (08:02)
[2019-03-26] MEDS: LABETALOL 100 MG TAB PO SCH (08:02)
[2019-03-26 08:03] VITALS: BP 156/97
[2019-03-26] MEDS: ramipriL 5 MG CAP PO SCH (08:03)
[2019-03-26] MEDS ORDERED: IPRA0.00 NEB (09:21)
[2019-03-26] MEDS ORDERED: PRED20TA PO (10:28)
--- NOTE | 2019-03-28 14:58 | DS.PDOC ---
Discharge Summary General Date of Admission Mar 24, 2019 at 22:06 Date of Discharge 03/26/19 Discharge Summary PROCEDURES PERFORMED DURING STAY: [None]. DISCHARGE DIAGNOSES: Viral URI with Viral pneumonia with Human metapneumovirus. Post infectious bronchospasm. SECONDARY DIAGNOSIS: Morbid obesity with BMI of 46.2, Hyperlipidemia, GERD, Hypertension, Neck fusion, COMPLICATIONS/CHIEF COMPLAINT: Gerd,Hldmhtn,Viral Uri With Cough. HISTORY OF PRESENT ILLNESS: See history and physical HOSPITAL COURSE: 53-year-old female with past medical history of hypertension, hyperlipidemia and GERD, Neck fusion presents from home with shortness of breath and cough. Patient had shortness of breath, fever and chest pain over the past 2-3 days. She went to urgent care 3 days ago, was prescribed cefuroxime, symptoms have been worsening since then. She also reports associated myalgias and diarrhea. She was found to have Human metapneumovirus in the respiratory panel. Chest Xray showed early Right lower lobe infiltrates. Admitted for Viral URI and viral pneumonia. Viral URI with viral pneumonia. No fever, WBC normal. pro-calcitonin normal No antibiotics needed. will continue duonebs and give a course of prednisone Hypertension. Continue home labetalol and Ramipril Hyperlipidemia. Continue Crestor GERD. Continue PPI DISCHARGE MEDICATIONS: Please see below. ALLERGIES: Please see below. PHYSICAL EXAMINATION ON DISCHARGE: VITAL SIGNS: Please see below. HEENT: Normocephalic, atraumatic, moist mucous membranes, Anicteric eyes NECK: Supple, No JVD, No thyromegaly CARDIOVASCULAR EXAMINATION: S1, S2 regular, normal rate, no murmurs or rub or gallop. RESPIRATORY EXAMINATION: Scattered rhonchi, and wheezing ABDOMINAL EXAMINATION: Soft, nontender, nondistended, positive bowel sounds EXTREMITIES: Range of motion intact SKIN: No rash NEUROLOGICAL EXAMINATION: Alert and oriented 3, no focal deficits PSYCHIATRIC EXAMINATION: Calm and cooperative LABORATORY DATA: Please see below. IMAGING: Chest x-ray with subtle right lower lobe opacity ACTIVITY: [As tolerated]. DIET: As tolerated DISPOSITION: 01 Home, Self-Care. DISCHARGE INSTRUCTIONS: Follow up with PMD in 1 week DISCHARGE CONDITION: [Stable]. TIME SPENT ON DISCHARGE: 35 minutes. Vital Signs/I&Os Vital Signs Date Time Temp Pulse Resp B/P (MAP) Pulse Ox O2 Delivery O2 Flow Rate FiO2 03/26/19 08:03 156/97 03/26/19 08:02 86 03/26/19 06:00 98.5 17 95 Room Air Laboratory Data CBC/BMP Item Value Date Time White Blood Count 5.4 10^3/uL 03/25/19 0824 Red Blood Count 4.61 10^6/uL 03/25/19 0824 Hemoglobin 13.3 g/dl 03/25/19 0824 Hematocrit 40.9 % 03/25/19 0824 Mean Corpuscular Volume 88.7 fl 03/25/19 0824 Mean Corpuscular Hemoglobin 28.9 pg 03/25/19 0824 Mean Corpuscular Hemoglobin Concent 32.5 g/dl 03/25/19 0824 Red Cell Distribution Width 12.1 % 03/25/19 0824 Platelet Count 330 10^3/uL 03/25/19 0824 Sodium Level 138 MEQ/L 03/25/19 0824 Potassium Level 4.0 MEQ/L 03/25/19 0824 Chloride Level 105 MEQ/L 03/25/19 0824 Carbon Dioxide Level 24 MEQ/L 03/25/19 0824 Anion Gap 9 MEQ/L 03/25/19 0824 Blood Urea Nitrogen 9 MG/DL 03/25/19 0824 Creatinine 0.80 MG/DL 03/25/19 0824 Glomerular Filtration Rate > 60.0 03/25/19 0824 Fasting Glucose 92 MG/DL 03/25/19 0824 Calcium Level 8.9 MG/DL 03/25/19 0824 Magnesium Level 2.3 MG/DL 03/25/19 0824 Total Bilirubin 0.4 MG/DL 03/25/19 0824 Aspartate Amino Transf (AST/SGOT) 41 U/L H 03/25/19 0824 Alanine Aminotransferase (ALT/SGPT) 33 U/L 03/25/19 0824 Alkaline Phosphatase 90 U/L 03/25/19 0824 Total Protein 7.7 GM/DL 03/25/19 0824 Albumin 4.0 GM/DL 03/25/19 0824 Albumin/Globulin Ratio 1.08 03/25/19 0824 Procalcitonin 0.06 NG/ML 03/25/19 0824 Thyroid Stimulating Hormone (TSH) 1.420 uIU/ML 03/24/197 Free Thyroxine 1.36 NG/DL 03/24/19 1907 Microbiology Microbiology 03/25/19 Respiratory Virus Panel (PCR) (DANIELLA) - Final, Complete Human Metapneumovirus 03/24/19 Blood Culture - Preliminary, Resulted No Growth after 72 hours. All specime... 03/24/19 Blood Culture - Preliminary, Resulted No Growth after 72 hours. All specime... Discharge Medications Scheduled Esomeprazole Magnesium (Esomeprazole Magnesium) 40 Mg Cap, 40 MG PO BID, (Reported) Labetalol HCl (Labetalol HCl) 100 Mg Tab, 100 MG PO BID, (Reported) Linaclotide (Linzess) 145 Mcg Capsule, 145 MCG PO DAILY, (Reported) NEW MEDICATION - PATIENT HAS NOT STARTED Prednisone (Prednisone) 20 Mg Tablet, 1 TAB PO DAILY Ramipril (Ramipril) 5 Mg Cap, 5 MG PO DAILY, (Reported) Rosuvastatin Calcium (Rosuvastatin Calcium) 10 Mg Tab, 10 MG PO QHS, (Reported) Scheduled PRN Acetaminophen (Acetaminophen) 500 Mg Tablet, 1,000 MG PO QID PRN for PAIN, (Reported) Albuterol Sulfate (Ventolin Hfa) 18 Gm Hfa.aer.ad, 2 PUFF INH QID PRN for SHORTNESS OF BREATH, (Reported) Ipratropium/Albuterol Sulfate (Iprat-Albut 0.5-3(2.5) mg/3 ml) 3 Ml Ampul.neb, 3 ML NEB Q6HP PRN for SOB/WHEEZING Allergies Coded Allergies: Penicillins (Verified Allergy, Intermediate, HIVES, 03/24/19) hydrocortisone (Verified Allergy, Intermediate, SEVER RASH, 03/24/19) USUALLY TURNS TO CELLULITIS TAPE (Verified Adverse Reaction, Intermediate, RASH, 12/02/16) LAUREL SZYMANSKI MD Mar 28, 2019 14:58
== END 2019-03-26 10:35 | disposition home or self-care (01) | DRG 194 ==
LOC: M ED 15:16 → M ED INP 22:06 → M MSPAV 23:51
PROVIDERS: ADMIT Internal Medicine; ATTEND Internal Medicine Nephrology
DX: J12.3 Human metapneumovirus pneumonia (principal); Z68.42 Body mass index [BMI] 45.0-49.9, adult; E66.01 Morbid (severe) obesity due to excess calories; E78.5 Hyperlipidemia, unspecified; K21.9 Gastro-esophageal reflux disease without esophagitis; I10 Essential (primary) hypertension; Z79.899 Other long term (current) drug therapy; Z88.0 Allergy status to penicillin; Z88.5 Allergy status to narcotic agent

== ENCOUNTER → 2020-01-10 | Outpatient (REF) | payer OTHER ==
[~2020-01-10] MED LIST changes: +ACET500T15 PO; +CEFU1TAB22 PO; +IPRA0.00 NEB; +LINZ145C PO; +NON-325T5 PO; +PRED20TA PO; +VENTAER INH
[2020-01-10 17:13] LABS: INFLUENZA A AMPLIFICATION NEGATIVE (NEGATIVE); INFLUENZA B AMPLIFICATION NEGATIVE (NEGATIVE)
== END ==
LOC: M LAB REF 16:11
PROVIDERS: ATTEND Physician Assistant Medical
DX: J11.1 Influenza due to unidentified influenza virus with other respiratory manifestations (principal)